=== PATIENT | female | born 1950 | race African-American/Black ===

== ENCOUNTER 2020-01-25 16:45 | Emergency (ER) | payer MEDICARE, MEDICAID ==
[~2020-01-25] VITALS: Ht 165.1 cm; Wt 82.0 kg
[~2020-01-25 16:45] MED LIST: AMLO10TA4 PO; BIMA2.5D4 EACHEYE; HYDR-4001 PO; MOM PO; NITR0.4T SL; POLY17PO28 PO; SENN8.6T21 PO; TOPUD PO
[2020-01-25 19:06] LABS: BASOPHILS % 0.8 % (0.0-2.0); EOSINOPHILS % 5.2 % (0.0-5.0); HEMATOCRIT. 42.9 % (36.0-48.0); HEMOGLOBIN. 14.1 g/dL (12.0-16.0); LYMPHOCYTES % 22.8 % (20.0-50.0); MEAN CORPUSCULAR HEMOGLOBIN 26.2 pg (28.0-32.0); MEAN CORPUSCULAR VOLUME 79.9 fL (81.0-99.0); MEAN PLATELET VOLUME 9.6 fl (7.4-10.4); MONOCYTES % 6.8 % (2.0-8.0); NEUTROPHILS % 64.4 % (40.0-76.0); PLATELET 406 x1000/uL (130-400); RED BLOOD CELL COUNT 5.38 mill/uL (4.2-5.4); RED CELL DISTRIBUTION WIDTH 15.5 % (11.6-14.6)
[2020-01-25 19:08] LABS: CHLORIDE 100 mEq/L (98-107)
[2020-01-25 20:35] LABS: CLARITY URINE CLEAR (CLEAR); COLOR URINE YELLOW (YELLOW); KETONES URINE NEGATIVE (NEGATIVE); LEUKOCYTE ESTERASE URINE NEGATIVE (NEGATIVE); NITRITE URINE NEGATIVE (NEGATIVE); OCCULT BLOOD URINE NEGATIVE (NEGATIVE); PROTEIN URINE NEGATIVE (NEGATIVE); SPECIFIC GRAVITY URINE 1.026 (1.005-1.030); UROBILINOGEN URINE 0.2 E.U./dL (0.2-1.0)
[2020-01-25] MEDS ORDERED: FLUCONAZOLE 100MG TABLET PO ONE (21:00)
[2020-01-25] MEDS ORDERED: FLUCONAZOLE 150MG TABLET PO ONE (21:00)
[2020-01-25 22:00] VITALS: BP 152/93
== END 2020-01-26 00:01 | disposition home or self-care (01) ==
LOC: ER 16:45
DX: B37.89 Other sites of candidiasis (principal); E11.65 Type 2 diabetes mellitus with hyperglycemia; I10 Essential (primary) hypertension; Z86.73 Personal history of transient ischemic attack (TIA), and cerebral infarction without residual deficits; Z90.710 Acquired absence of both cervix and uterus; Z79.899 Other long term (current) drug therapy
CPT/HCPCS: 36415; 80048; 81003; 85025; 99285

== ENCOUNTER 2020-06-14 15:05 | Inpatient (IN) | payer MEDICARE, MEDICAID ==
[~2020-06-14] VITALS: Ht 170.2 cm; Wt 122.0 kg
[2020-06-14 16:59] LABS: BASOPHILS % 0.5 % (0.0-2.0); EOSINOPHILS % 1.1 % (0.0-5.0); HEMATOCRIT. 35.2 % (36.0-48.0); HEMOGLOBIN. 11.3 g/dL (12.0-16.0); LYMPHOCYTES % 11.7 % (20.0-50.0); MEAN CORPUSCULAR HEMOGLOBIN 24.8 pg (28.0-32.0); MEAN CORPUSCULAR VOLUME 77.6 fL (81.0-99.0); MEAN PLATELET VOLUME 8.8 fl (7.4-10.4); MONOCYTES % 5.6 % (2.0-8.0); NEUTROPHILS % 81.1 % (40.0-76.0); PLATELET 366 x1000/uL (130-400); RED BLOOD CELL COUNT 4.54 mill/uL (4.2-5.4); RED CELL DISTRIBUTION WIDTH 17.2 % (11.6-14.6)
[2020-06-14 17:05] LABS: CHLORIDE 105 mEq/L (98-107)
[2020-06-14 17:08] LABS: PROTHROMBIN TIME 10.5 sec (9.6-11.0)
[2020-06-14] MEDS ORDERED: ONDANSETRON HCL 4MG/2ML INJ IV ONE (18:15)
[2020-06-14] MEDS ORDERED: FAMOTIDINE 20MG/2ML VIAL IV ONE (18:15)
[2020-06-14] MEDS ORDERED: MORPHINE SULFATE 4 MG/ML CPJ (NOT FOR IM USE) IV ONE (18:15)
[2020-06-14] MEDS ORDERED: CEFTRIAXONE 1 G PREMIX 50 ML IV NR (20:45)
[2020-06-14] MEDS ORDERED: DEXTROSE 50% WATER 50ML SYRINGE IV PRN (21:30)
[2020-06-14] MEDS ORDERED: ONDANSETRON HCL 4MG/2ML INJ IV PRN (21:30)
[2020-06-14] MEDS ORDERED: ZOLPIDEM TARTRATE 5MG TABLET PO PRN (21:30)
[2020-06-14] MEDS ORDERED: TRAMADOL 50MG TABLET PO PRN (21:30)
[2020-06-14] MEDS ORDERED: DOCUSATE SODIUM 100MG CAPSULE PO PRN (21:30)
[2020-06-14] MEDS ORDERED: GUAIFENESIN 200MG/10ML SUGAR FREE UDC PO PRN (21:30)
[2020-06-14] MEDS ORDERED: KETOROLAC 15MG/ML VIAL IV PRN (21:30)
[2020-06-14] MEDS ORDERED: MAGNESIUM/ALUMINUM HYDROXIDE/SIMETHICONE 30ML UDC PO PRN (21:30)
[2020-06-14] MEDS ORDERED: CLONIDINE 0.1MG TABLET PO PRN (21:30)
[2020-06-14] MEDS ORDERED: NA PHOS,M-B/NA PHOS,DI-BA ENEMA 118ML PR PRN (21:30)
[2020-06-14] MEDS ORDERED: IPRATROPIUM/ALBUTEROL 0.5-3(2.5)MG/3ML NEB NEB PRN (21:30)
[2020-06-14] MEDS: DEXT 5%/LACTATED RINGERS 1,000 ML IV SCH (23:15)
[2020-06-14] MEDS: ACETAMINOPHEN 325MG TABLET PO PRN (23:35)
[2020-06-14 23:45] VITALS: BP 130/76
[2020-06-15] VITALS: BP 130/76
[2020-06-15] MEDS ORDERED: BACL-141 MT (03:44)
[2020-06-15] MEDS ORDERED: CLON-457 MT (03:44)
[2020-06-15] MEDS ORDERED: PREG50CA MT (03:44)
[2020-06-15] MEDS ORDERED: ATOR20TA65 PO (03:44)
[2020-06-15] MEDS ORDERED: DULO60CA64 PO (03:44)
[2020-06-15] MEDS ORDERED: LACT10SO30 MT (03:44)
[2020-06-15] MEDS ORDERED: ASPI-1158 MT (03:44)
[2020-06-15] MEDS ORDERED: GLYB5TAB7 MT (03:44)
[2020-06-15] MEDS ORDERED: FAMO20TA8 MT (03:44)
[2020-06-15] MEDS ORDERED: DOCU-138 MT (03:44)
[2020-06-15] MEDS ORDERED: BISA10SU62 RC (03:44)
[2020-06-15] MEDS ORDERED: IPRA3AMP31 IH (03:44)
[2020-06-15] MEDS ORDERED: NA P230E RC (03:44)
[2020-06-15 04:00] VITALS: BP 145/79
[2020-06-15] MEDS ORDERED: PIPERACILLIN/TAZ 3.375G PREMIX 50 ML IV SCH (06:00)
[2020-06-15] MEDS: BLOOD SUGAR DIAGNOSTIC STRIP TEST SCH ×4 (06:55→20:54)
[2020-06-15] MEDS: DEXT 5%/LACTATED RINGERS 1,000 ML IV SCH ×2 (06:55→06:56)
[2020-06-15] MEDS: PIPERACILLIN/TAZOBACTAM 3.375 G in DEXT 5% WATER 100 ML IV SCH ×3 (06:55→21:28)
[2020-06-15] MEDS: INSULIN LISPRO 100 UNITS/ML SUBCUT SCH ×4 (07:10→21:39)
[2020-06-15 08:00] VITALS: BP 132/76
[2020-06-15] MEDS: AMLODIPINE 10MG TABLET PO SCH (08:55)
[2020-06-15] MEDS: PANTOPRAZOLE SODIUM 40 MG/VIAL IV SCH (08:55)
[2020-06-15] MEDS ORDERED: ENOXAPARIN 40MG/0.4ML SYR SUBCUT SCH (09:00)
[2020-06-15 12:00] VITALS: BP 132/79
[2020-06-15] MEDS: ACETAMINOPHEN 325MG TABLET PO PRN ×2 (12:50→21:28)
[2020-06-15 16:00] VITALS: BP 137/73
[2020-06-15 20:00] VITALS: BP 136/76
[2020-06-15] MEDS: ENOXAPARIN 30MG/0.3ML SYR SUBCUT SCH (21:28)
[2020-06-15 22:57] LABS: FOLIC ACID (FOLATE) SERUM 12.1 ng/mL (>5.38)
[2020-06-16] VITALS: BP 136/75
[2020-06-16] MEDS: MORPHINE SULFATE 2 MG/ML CPJ (NOT FOR IM USE) IV PRN ×2 (00:46→12:01)
[2020-06-16] MEDS: DEXT 5%/LACTATED RINGERS 1,000 ML IV SCH ×2 (02:47→14:50)
[2020-06-16 04:45] VITALS: BP 133/70
[2020-06-16] MEDS: ACETAMINOPHEN 325MG TABLET PO PRN ×2 (05:19→21:23)
[2020-06-16] MEDS: PIPERACILLIN/TAZOBACTAM 3.375 G in DEXT 5% WATER 100 ML IV SCH ×3 (05:19→21:24)
[2020-06-16] MEDS: BLOOD SUGAR DIAGNOSTIC STRIP TEST SCH ×4 (06:32→21:22)
[2020-06-16] MEDS: INSULIN LISPRO 100 UNITS/ML SUBCUT SCH ×4 (06:38→21:25)
[2020-06-16 08:00] VITALS: BP 129/72
[2020-06-16] MEDS: AMLODIPINE 10MG TABLET PO SCH (09:38)
[2020-06-16] MEDS: ENOXAPARIN 30MG/0.3ML SYR SUBCUT SCH (09:38)
[2020-06-16] MEDS: PANTOPRAZOLE SODIUM 40 MG/VIAL IV SCH (09:38)
[2020-06-16 12:00] VITALS: BP 128/63
[2020-06-16 12:32] LABS: BASOPHILS % 0.9 % (0.0-2.0); EOSINOPHILS % 1.9 % (0.0-5.0); HEMATOCRIT. 33.8 % (36.0-48.0); HEMOGLOBIN. 10.8 g/dL (12.0-16.0); LYMPHOCYTES % 9.5 % (20.0-50.0); MEAN CORPUSCULAR HEMOGLOBIN 24.9 pg (28.0-32.0); MEAN CORPUSCULAR VOLUME 78.2 fL (81.0-99.0); MEAN PLATELET VOLUME 9.3 fl (7.4-10.4); MONOCYTES % 8.6 % (2.0-8.0); NEUTROPHILS % 79.1 % (40.0-76.0); PLATELET 348 x1000/uL (130-400); RED BLOOD CELL COUNT 4.33 mill/uL (4.2-5.4); RED CELL DISTRIBUTION WIDTH 17.7 % (11.6-14.6)
[2020-06-16 12:45] LABS: CHLORIDE 104 mEq/L (98-107)
[2020-06-16 16:00] VITALS: BP 138/63
[2020-06-16 20:00] VITALS: BP 150/74
[2020-06-17] VITALS (18 sets, daily range): BP systolic 131–185; BP diastolic 70–104
[2020-06-17] MEDS: PIPERACILLIN/TAZOBACTAM 3.375 G in DEXT 5% WATER 100 ML IV SCH ×3 (05:54→21:04)
[2020-06-17] MEDS: BLOOD SUGAR DIAGNOSTIC STRIP TEST SCH ×4 (06:29→20:53)
[2020-06-17] MEDS: INSULIN LISPRO 100 UNITS/ML SUBCUT SCH ×4 (06:29→21:03)
[2020-06-17] MEDS: PANTOPRAZOLE SODIUM 40 MG/VIAL IV SCH (08:57)
[2020-06-17] MEDS: DEXT 5%/LACTATED RINGERS 1,000 ML IV SCH ×2 (08:58→22:18)
[2020-06-17] MEDS: AMLODIPINE 10MG TABLET PO SCH (08:59)
[2020-06-17] MEDS ORDERED: LIDOCAINE HCL 1% 20ML VIAL (Pyxis) INJ ONE (10:42)
[2020-06-17] MEDS ORDERED: SODIUM BICARBONATE 4% (2.4MEQ) 5ML VIAL IV ONE (10:42)
[2020-06-17] MEDS ORDERED: IOHEXOL-300 50 ML BOTTLE IV ONE (10:46)
[2020-06-17] MEDS ORDERED: FENTANYL CITRATE/PF 50MCG/ML 2ML VIAL ONE (11:32)
[2020-06-17] MEDS ORDERED: FENTANYL CITRATE/PF 50MCG/ML 2ML VIAL IV ONE (11:45)
[2020-06-17] MEDS ORDERED: ONDANSETRON HCL 4MG/2ML INJ IV ONE (11:45)
[2020-06-17] MEDS ORDERED: ONDANSETRON HCL 4MG/2ML INJ ONE (11:47)
[2020-06-18] VITALS: BP 135/76
[2020-06-18 04:00] VITALS: BP 129/72
[2020-06-18] MEDS: DEXT 5%/LACTATED RINGERS 1,000 ML IV SCH ×2 (05:51→15:47)
[2020-06-18] MEDS: PIPERACILLIN/TAZOBACTAM 3.375 G in DEXT 5% WATER 100 ML IV SCH ×3 (05:51→21:41)
[2020-06-18] MEDS: BLOOD SUGAR DIAGNOSTIC STRIP TEST SCH ×4 (05:59→21:31)
[2020-06-18] MEDS: INSULIN LISPRO 100 UNITS/ML SUBCUT SCH ×4 (06:16→21:40)
[2020-06-18 08:00] VITALS: BP 131/70
[2020-06-18] MEDS: AMLODIPINE 10MG TABLET PO SCH (09:29)
[2020-06-18] MEDS: PANTOPRAZOLE SODIUM 40 MG/VIAL IV SCH (09:29)
[2020-06-18 09:33] LABS: BASOPHILS % 0.5 % (0.0-2.0); EOSINOPHILS % 4.6 % (0.0-5.0); HEMATOCRIT. 31.5 % (36.0-48.0); MEAN CORPUSCULAR HEMOGLOBIN 24.7 pg (28.0-32.0); MEAN CORPUSCULAR VOLUME 77.5 fL (81.0-99.0); MEAN PLATELET VOLUME 8.9 fl (7.4-10.4); MONOCYTES % 5.6 % (2.0-8.0); NEUTROPHILS % 76.3 % (40.0-76.0); PLATELET 339 x1000/uL (130-400); RED BLOOD CELL COUNT 4.06 mill/uL (4.2-5.4)
[2020-06-18 09:45] LABS: CHLORIDE 102 mEq/L (98-107)
[2020-06-18 09:50] LABS: PHOSPHORUS 2.4 mg/dL (2.5-4.9)
[2020-06-18 12:00] VITALS: BP 122/60
[2020-06-18] MEDS ORDERED: POTASSIUM CHLORIDE 20MEQ TABLET SR PO SCH (12:30)
[2020-06-18 16:00] VITALS: BP 130/65
[2020-06-18] MEDS ORDERED: POTASSIUM PHOS,M-BASIC-D-BASIC 15 MMOL in DEXT 5% WATER 245 ML IV ONE (16:45)
[2020-06-18 20:00] VITALS: BP 117/58
[2020-06-19] VITALS: BP 135/69
[2020-06-19] MEDS: DEXT 5%/LACTATED RINGERS 1,000 ML IV SCH ×3 (01:46→20:50)
[2020-06-19 04:00] VITALS: BP 112/67
[2020-06-19] MEDS: PIPERACILLIN/TAZOBACTAM 3.375 G in DEXT 5% WATER 100 ML IV SCH ×3 (05:40→21:03)
[2020-06-19] MEDS: BLOOD SUGAR DIAGNOSTIC STRIP TEST SCH ×4 (06:16→20:49)
[2020-06-19] MEDS: INSULIN LISPRO 100 UNITS/ML SUBCUT SCH ×4 (06:17→20:49)
[2020-06-19 06:35] LABS: BASOPHILS % 0.5 % (0.0-2.0); EOSINOPHILS % 6.1 % (0.0-5.0); HEMATOCRIT. 31.5 % (36.0-48.0); HEMOGLOBIN. 10.2 g/dL (12.0-16.0); LYMPHOCYTES % 14.4 % (20.0-50.0); MEAN CORPUSCULAR HEMOGLOBIN 24.9 pg (28.0-32.0); MEAN CORPUSCULAR VOLUME 76.5 fL (81.0-99.0); MEAN PLATELET VOLUME 8.7 fl (7.4-10.4); MONOCYTES % 6.6 % (2.0-8.0); NEUTROPHILS % 72.4 % (40.0-76.0); PLATELET 378 x1000/uL (130-400); RED BLOOD CELL COUNT 4.12 mill/uL (4.2-5.4); RED CELL DISTRIBUTION WIDTH 16.9 % (11.6-14.6)
[2020-06-19 06:39] LABS: CHLORIDE 100 mEq/L (98-107)
[2020-06-19 06:50] LABS: PHOSPHORUS 3.4 mg/dL (2.5-4.9)
[2020-06-19 08:00] VITALS: BP 137/87
[2020-06-19] MEDS: AMLODIPINE 10MG TABLET PO SCH (08:31)
[2020-06-19] MEDS: ENOXAPARIN 30MG/0.3ML SYR SUBCUT SCH ×2 (08:32→20:49)
[2020-06-19] MEDS: FAMOTIDINE 20MG/2ML VIAL IV SCH ×2 (08:32→20:48)
[2020-06-19] MEDS: ACETAMINOPHEN 325MG TABLET PO PRN (09:42)
[2020-06-19] MEDS ORDERED: POTASSIUM CHLORIDE 20MEQ TABLET SR PO NR (10:45)
[2020-06-19 12:00] VITALS: BP 119/80
[2020-06-19] MEDS ORDERED: POTASSIUM CHLORIDE INJ 40 MEQ in DEXT 5% WATER 250 ML IV NR (13:00)
[2020-06-19] MEDS: THROAT LOZENGES-BENZOCAINE/MENTH/CETYLPYRD CL LOZENGES MM PRN ×2 (15:08→20:50)
[2020-06-19 15:59] VITALS: BP 149/85
[2020-06-19 21:25] VITALS: BP 140/80
[2020-06-20] VITALS: BP 140/78
[2020-06-20 04:00] VITALS: BP 139/74
[2020-06-20] MEDS: PIPERACILLIN/TAZOBACTAM 3.375 G in DEXT 5% WATER 100 ML IV SCH ×2 (05:37→14:37)
[2020-06-20] MEDS: INSULIN LISPRO 100 UNITS/ML SUBCUT SCH ×3 (06:24→18:16)
[2020-06-20] MEDS: BLOOD SUGAR DIAGNOSTIC STRIP TEST SCH ×3 (06:24→16:45)
[2020-06-20] MEDS: DEXT 5%/LACTATED RINGERS 1,000 ML IV SCH (06:25)
[2020-06-20 08:00] VITALS: BP 142/76
[2020-06-20 08:41] LABS: BASOPHILS % 0.6 % (0.0-2.0); EOSINOPHILS % 5.7 % (0.0-5.0); LYMPHOCYTES % 14.4 % (20.0-50.0); MEAN CORPUSCULAR HEMOGLOBIN 24.6 pg (28.0-32.0); MEAN CORPUSCULAR VOLUME 76.8 fL (81.0-99.0); MEAN PLATELET VOLUME 8.4 fl (7.4-10.4); MONOCYTES % 6.6 % (2.0-8.0); NEUTROPHILS % 72.7 % (40.0-76.0); PLATELET 447 x1000/uL (130-400); RED BLOOD CELL COUNT 4.84 mill/uL (4.2-5.4)
[2020-06-20 08:58] LABS: HEMATOCRIT. 37.2 % (36.0-48.0); HEMOGLOBIN. 11.9 g/dL (12.0-16.0)
[2020-06-20 09:06] LABS: CHLORIDE 101 mEq/L (98-107)
[2020-06-20 09:14] LABS: PHOSPHORUS 3.2 mg/dL (2.5-4.9)
[2020-06-20] MEDS: FAMOTIDINE 20MG/2ML VIAL IV SCH (09:27)
[2020-06-20] MEDS: ENOXAPARIN 30MG/0.3ML SYR SUBCUT SCH (09:27)
[2020-06-20] MEDS: AMLODIPINE 10MG TABLET PO SCH (09:28)
[2020-06-20 12:00] VITALS: BP 126/74
[2020-06-20 16:00] VITALS: BP 127/82
== END 2020-06-20 18:40 | DRG 445 ==
LOC: ER 15:05 → 5WST 21:19 → ENRESERV 23:04
PROVIDERS: ADMIT Internal Medicine; ATTEND Internal Medicine
PROC: 0F9430Z Drainage of Gallbladder with Drainage Device, Percutaneous Approach (ICD-10-PCS; principal; 2020-06-14)
DX: K81.0 Acute cholecystitis (principal); Z68.41 Body mass index [BMI] 40.0-44.9, adult; E44.0 Moderate protein-calorie malnutrition; M19.90 Unspecified osteoarthritis, unspecified site; N20.0 Calculus of kidney; K76.0 Fatty (change of) liver, not elsewhere classified; I10 Essential (primary) hypertension; F17.200 Nicotine dependence, unspecified, uncomplicated; D64.9 Anemia, unspecified; E11.9 Type 2 diabetes mellitus without complications; Z20.828 Contact with and (suspected) exposure to other viral communicable diseases; E66.9 Obesity, unspecified; Z86.73 Personal history of transient ischemic attack (TIA), and cerebral infarction without residual deficits; Z79.4 Long term (current) use of insulin; Z79.899 Other long term (current) drug therapy; Z82.49 Family history of ischemic heart disease and other diseases of the circulatory system; Z90.710 Acquired absence of both cervix and uterus
CPT/HCPCS: 36415; 47490; 71045; 74176; 76705; 78227; 80048; 80053; 80061; 80076; 82607; 82746; 82962; 83036; 83540; 83550; 83735; 83880; 84100; 84484; 85025; 87426; 93005; 93970; 97162; 97530; 99285; A9537; C1729; C9113; J0696; J1650; J1815; J2270; J2405; J2543; J3010; J3480; J3490; J7060; Q9967

== ENCOUNTER → 2020-07-22 | Day surgery (SDC) | payer MEDICARE, MEDICAID ==
[~2020-07-22] MED LIST changes: +ASPI-1158 MT; +ATOR20TA65 PO; +BACL-141 MT; +BISA10SU62 RC; +CLON-457 MT; +DOCU-138 MT; +DULO60CA64 PO; +FAMO20TA8 MT; +GLYB5TAB7 MT; +IOHEXOL-300 50 ML BOTTLE IV ONE; +IPRA3AMP31 IH; +LACT10SO30 MT; +LIDOCAINE HCL 1% 20ML VIAL (Pyxis) INJ ONE; +NA P230E RC; +PREG50CA MT; +SODIUM BICARBONATE 4% (2.4MEQ) 5ML VIAL IV ONE
== END | disposition home or self-care (01) ==
LOC: ANGIO 10:23 → EDSTATUS 10:27
PROVIDERS: ATTEND Surgery
DX: K80.20 Calculus of gallbladder without cholecystitis without obstruction (principal)
CPT/HCPCS: 47490; Q9967; 47531; J3490

== ENCOUNTER 2021-04-17 00:43 | Inpatient (IN) | payer MEDICARE, MEDICAID ==
[~2021-04-17] VITALS: Ht 170.2 cm; Wt 115.7 kg
[~2021-04-17 00:43] MED LIST changes: -ASPI-1158 MT; +ASPI-1406 MT; -IOHEXOL-300 50 ML BOTTLE IV ONE; -LIDOCAINE HCL 1% 20ML VIAL (Pyxis) INJ ONE; -SODIUM BICARBONATE 4% (2.4MEQ) 5ML VIAL IV ONE
[2021-04-17 01:43] LABS: BASOPHILS % 0.8 % (0.0-2.0); EOSINOPHILS % 1.3 % (0.0-5.0); HEMATOCRIT. 37.7 % (36.0-48.0); HEMOGLOBIN. 12.3 g/dL (12.0-16.0); LYMPHOCYTES % 17.3 % (20.0-50.0); MEAN CORPUSCULAR HEMOGLOBIN 25.1 pg (28.0-32.0); MEAN CORPUSCULAR VOLUME 76.7 fL (81.0-99.0); MEAN PLATELET VOLUME 9.4 fl (7.4-10.4); MONOCYTES % 5.9 % (2.0-8.0); NEUTROPHILS % 74.7 % (40.0-76.0); PLATELET 360 x1000/uL (130-400); RED BLOOD CELL COUNT 4.92 mill/uL (4.2-5.4); RED CELL DISTRIBUTION WIDTH 16.5 % (11.6-14.6)
[2021-04-17 01:46] LABS: CHLORIDE 103 mEq/L (98-107)
[2021-04-17 01:53] LABS: PROTHROMBIN TIME 11.1 sec (9.6-11.0)
[2021-04-17] MEDS ORDERED: PIPERACILLIN/TAZ 3.375G PREMIX 50 ML IV ONE (02:15)
[2021-04-17 02:34] LABS: CLARITY URINE CLOUDY (CLEAR); COLOR URINE YELLOW (YELLOW); KETONES URINE NEGATIVE (NEGATIVE); LEUKOCYTE ESTERASE URINE 2+ (NEGATIVE); NITRITE URINE POSITIVE (NEGATIVE); OCCULT BLOOD URINE NEGATIVE (NEGATIVE); PROTEIN URINE TRACE (NEGATIVE); SPECIFIC GRAVITY URINE 1.017 (1.005-1.030); UROBILINOGEN URINE 0.2 E.U./dL (0.2-1.0)
[2021-04-17] MEDS ORDERED: ACETAMINOPHEN 650MG SUPP PR NR (03:00)
[2021-04-17] MEDS ORDERED: ACETAMINOPHEN 325MG SUPP PR NR (03:00)
[2021-04-17] MEDS ORDERED: ONDANSETRON HCL 4MG/2ML INJ IV PRN (06:45)
[2021-04-17] MEDS ORDERED: NITROGLYCERIN 0.4MG TABLET SL SL PRN (06:45)
[2021-04-17] MEDS ORDERED: MAGNESIUM/ALUMINUM HYDROXIDE/SIMETHICONE 30ML UDC PO PRN (06:45)
[2021-04-17] MEDS ORDERED: GUAIFENESIN 200MG/10ML SUGAR FREE UDC PO PRN (06:45)
[2021-04-17] MEDS ORDERED: DEXTROSE 50% WATER 50ML SYRINGE IV PRN (06:45)
[2021-04-17] MEDS ORDERED: IPRATROPIUM/ALBUTEROL 0.5-3(2.5)MG/3ML NEB NEB PRN (06:45)
[2021-04-17] MEDS ORDERED: NA PHOS,M-B/NA PHOS,DI-BA ENEMA 118ML PR PRN (06:45)
[2021-04-17] MEDS ORDERED: CLONIDINE 0.1MG TABLET PO PRN (06:45)
[2021-04-17] MEDS ORDERED: TRAMADOL 50MG TABLET PO PRN (06:45)
[2021-04-17] MEDS ORDERED: ACETAMINOPHEN 325MG TABLET PO PRN ×2 (06:45)
[2021-04-17] MEDS ORDERED: VANCOMYCIN 1 G PREMIX 200 ML IV SCH ×3 (08:00→16:00)
[2021-04-17] MEDS: INSULIN LISPRO 100 UNITS/ML SUBCUT SCH ×4 (08:05→21:05)
[2021-04-17] MEDS ORDERED: DOCUSATE SODIUM 100MG CAPSULE PO PRN (09:00)
[2021-04-17] MEDS: ZINC SULFATE 220 MG ( 50 ) CAPSULE PO SCH (09:02)
[2021-04-17] MEDS: ASPIRIN 325MG EC TABLET PO SCH (09:02)
[2021-04-17] MEDS: FAMOTIDINE 20MG TABLET PO SCH ×2 (09:02→21:04)
[2021-04-17] MEDS: METOPROLOL TARTRATE 25MG TABLET PO SCH ×2 (09:02→21:03)
[2021-04-17] MEDS: ASCORBIC ACID 500 MG TABLET PO SCH ×2 (09:02→21:03)
[2021-04-17] MEDS: PIPERACILLIN/TAZOBACTAM 3.375 G in DEXTROSE 5% WATER 50 ML IV SCH ×3 (10:02→21:11)
[2021-04-17] MEDS: ENOXAPARIN 30MG/0.3ML SYR SUBCUT SCH ×2 (10:03→21:03)
[2021-04-17] MEDS: INSULIN GLARGINE UD 100 UNITS/ML SYR SUBCUT SCH (10:12)
[2021-04-17] MEDS: BLOOD SUGAR DIAGNOSTIC STRIP TEST SCH ×3 (11:30→20:20)
[2021-04-17] MEDS ORDERED: NALOXONE HCL 0.4MG/ML VIAL IV PRN (14:45)
[2021-04-17 17:41] VITALS: BP 116/70
[2021-04-17 17:45] LABS: T4 FREE 1.06 ng/dL (0.76-1.46)
[2021-04-17] MEDS: KETOROLAC 15MG/ML VIAL IV PRN (18:58)
[2021-04-17 19:16] VITALS: BP 116/70
[2021-04-17 19:27] VITALS: BP 116/70
[2021-04-17 19:58] LABS: CREATINE KINASE 27 IU/L (26-192)
[2021-04-17 19:59] LABS: CREATINE KINASE MB FRACTION < 1.0 ng/mL (0.5-3.6)
[2021-04-17 20:30] VITALS: BP 126/61
[2021-04-17] MEDS ORDERED: VANCOMYCIN 750 MG PREMIX 150 ML IV SCH (21:00)
[2021-04-17] MEDS ORDERED: ZOLPIDEM TARTRATE 5MG TABLET PO PRN (21:00)
[2021-04-17] MEDS ORDERED: METO25TA6 MT (22:06)
[2021-04-17] MEDS ORDERED: PERM60CR4 TP (22:06)
[2021-04-17] MEDS ORDERED: LANTUSUD SUBCUT (22:06)
[2021-04-17] MEDS ORDERED: HYDR-4001 PO (22:06)
[2021-04-17] MEDS ORDERED: INSLIS SUBCUT (22:06)
[2021-04-17] MEDS ORDERED: MELA3CAP2 PO (22:06)
[2021-04-17] MEDS ORDERED: LIDO30CR46 TP (22:06)
[2021-04-17] MEDS ORDERED: [UNRECOGNIZED DRUG - CODE] TP (22:06)
[2021-04-17] MEDS ORDERED: IVER3TAB2 MT (22:06)
[2021-04-17] MEDS ORDERED: LACT10SO3 MT (22:06)
[2021-04-17] MEDS ORDERED: METF-414 MT (22:06)
[2021-04-18 00:30] VITALS: BP 120/66
[2021-04-18 00:58] LABS: CREATINE KINASE 33 IU/L (26-192)
[2021-04-18 00:59] LABS: CREATINE KINASE MB FRACTION < 1.0 ng/mL (0.5-3.6)
[2021-04-18] MEDS: PIPERACILLIN/TAZOBACTAM 3.375 G in DEXTROSE 5% WATER 50 ML IV SCH ×4 (01:41→20:16)
[2021-04-18 04:30] VITALS: BP 130/68
[2021-04-18] MEDS: VANCOMYCIN 1 G PREMIX 200 ML IV SCH (05:15)
[2021-04-18] MEDS ORDERED: VANCOMYCIN 1 G PREMIX 200 ML IV SCH (06:00)
[2021-04-18] MEDS: BLOOD SUGAR DIAGNOSTIC STRIP TEST SCH ×4 (06:37→20:56)
[2021-04-18 08:20] VITALS: BP 129/72
[2021-04-18] MEDS: ASPIRIN 325MG EC TABLET PO SCH (09:22)
[2021-04-18] MEDS: FAMOTIDINE 20MG TABLET PO SCH ×2 (09:22→20:56)
[2021-04-18] MEDS: ZINC SULFATE 220 MG ( 50 ) CAPSULE PO SCH (09:22)
[2021-04-18] MEDS: ENOXAPARIN 30MG/0.3ML SYR SUBCUT SCH ×2 (09:22→20:16)
[2021-04-18] MEDS: METOPROLOL TARTRATE 25MG TABLET PO SCH ×2 (09:23→20:56)
[2021-04-18] MEDS: ASCORBIC ACID 500 MG TABLET PO SCH ×2 (09:23→20:56)
[2021-04-18] MEDS: INSULIN LISPRO 100 UNITS/ML SUBCUT SCH ×4 (09:42→20:57)
[2021-04-18] MEDS: INSULIN GLARGINE UD 100 UNITS/ML SYR SUBCUT SCH (11:42)
[2021-04-18 12:08] VITALS: BP 130/68
[2021-04-18 14:04] LABS: FOLIC ACID (FOLATE) SERUM 17.9 ng/mL (>5.38)
[2021-04-18 16:22] VITALS: BP 129/71
[2021-04-18 17:21] LABS: BASOPHILS % 0.5 % (0.0-2.0); EOSINOPHILS % 3.3 % (0.0-5.0); HEMATOCRIT. 33.4 % (36.0-48.0); LYMPHOCYTES % 17.8 % (20.0-50.0); MEAN CORPUSCULAR HEMOGLOBIN 25.2 pg (28.0-32.0); MEAN CORPUSCULAR VOLUME 77.1 fL (81.0-99.0); MEAN PLATELET VOLUME 9.4 fl (7.4-10.4); MONOCYTES % 6.8 % (2.0-8.0); NEUTROPHILS % 71.6 % (40.0-76.0); PLATELET 296 x1000/uL (130-400); RED BLOOD CELL COUNT 4.34 mill/uL (4.2-5.4); RED CELL DISTRIBUTION WIDTH 16.3 % (11.6-14.6)
[2021-04-18 17:50] LABS: CHLORIDE 103 mEq/L (98-107)
[2021-04-18 17:56] LABS: PHOSPHORUS 2.4 mg/dL (2.5-4.9)
[2021-04-18] MEDS: KETOROLAC 15MG/ML VIAL IV PRN (18:20)
[2021-04-18 20:00] VITALS: BP 148/79
[2021-04-19] VITALS: BP 134/73
[2021-04-19] MEDS: VANCOMYCIN 1 G PREMIX 200 ML IV SCH (00:13)
[2021-04-19] MEDS: PIPERACILLIN/TAZOBACTAM 3.375 G in DEXTROSE 5% WATER 50 ML IV SCH ×4 (02:12→20:25)
[2021-04-19 04:00] VITALS: BP 106/60
[2021-04-19 06:01] LABS: CHLORIDE 105 mEq/L (98-107)
[2021-04-19] MEDS: BLOOD SUGAR DIAGNOSTIC STRIP TEST SCH ×4 (06:15→21:26)
[2021-04-19 08:00] VITALS: BP 147/43
[2021-04-19] MEDS: ASPIRIN 325MG EC TABLET PO SCH (08:17)
[2021-04-19] MEDS: FAMOTIDINE 20MG TABLET PO SCH ×2 (08:17→21:26)
[2021-04-19] MEDS: ASCORBIC ACID 500 MG TABLET PO SCH ×2 (08:17→21:26)
[2021-04-19] MEDS: ENOXAPARIN 30MG/0.3ML SYR SUBCUT SCH ×2 (08:17→20:25)
[2021-04-19] MEDS: ZINC SULFATE 220 MG ( 50 ) CAPSULE PO SCH (08:17)
[2021-04-19] MEDS: INSULIN LISPRO 100 UNITS/ML SUBCUT SCH ×4 (08:21→21:27)
[2021-04-19] MEDS: METOPROLOL TARTRATE 25MG TABLET PO SCH ×2 (08:46→21:26)
[2021-04-19] MEDS: INSULIN GLARGINE UD 100 UNITS/ML SYR SUBCUT SCH (10:45)
[2021-04-19 12:22] VITALS: BP 115/79
[2021-04-19] MEDS: VANCOMYCIN 750 MG PREMIX 150 ML IV SCH (13:24)
[2021-04-19 16:00] VITALS: BP 158/39
[2021-04-19 20:00] VITALS: BP 140/72
[2021-04-20] VITALS: BP 133/75
[2021-04-20] MEDS: VANCOMYCIN 750 MG PREMIX 150 ML IV SCH ×2 (00:24→12:29)
[2021-04-20] MEDS: PIPERACILLIN/TAZOBACTAM 3.375 G in DEXTROSE 5% WATER 50 ML IV SCH ×2 (02:52→08:54)
[2021-04-20 04:00] VITALS: BP 132/70
[2021-04-20] MEDS: BLOOD SUGAR DIAGNOSTIC STRIP TEST SCH ×4 (06:51→21:05)
[2021-04-20 08:00] VITALS: BP 136/68
[2021-04-20] MEDS: FAMOTIDINE 20MG TABLET PO SCH ×2 (08:54→21:04)
[2021-04-20] MEDS: ASPIRIN 325MG EC TABLET PO SCH (08:54)
[2021-04-20] MEDS: ZINC SULFATE 220 MG ( 50 ) CAPSULE PO SCH (08:54)
[2021-04-20] MEDS: ASCORBIC ACID 500 MG TABLET PO SCH ×2 (08:54→21:04)
[2021-04-20] MEDS: ENOXAPARIN 30MG/0.3ML SYR SUBCUT SCH ×2 (08:55→21:04)
[2021-04-20] MEDS: METOPROLOL TARTRATE 25MG TABLET PO SCH ×2 (08:57→21:04)
[2021-04-20] MEDS: INSULIN LISPRO 100 UNITS/ML SUBCUT SCH ×4 (08:58→21:09)
[2021-04-20] MEDS: INSULIN GLARGINE UD 100 UNITS/ML SYR SUBCUT SCH (10:53)
[2021-04-20 12:00] VITALS: BP 137/76
[2021-04-20 16:00] VITALS: BP 148/83
[2021-04-20] MEDS: CEFEPIME 1,000 MG in DEXTROSE 5% WATER 50 ML IV SCH (16:31)
[2021-04-20 20:00] VITALS: BP 142/89
[2021-04-20] MEDS: TRIAMCINOLONE ACETONIDE 0.1 % OINT 15GM TOP SCH (21:03)
[2021-04-21] VITALS: BP 118/51
[2021-04-21] MEDS: VANCOMYCIN 750 MG PREMIX 150 ML IV SCH ×2 (00:23→12:36)
[2021-04-21 04:00] VITALS: BP 128/74
[2021-04-21] MEDS: CEFEPIME 1,000 MG in DEXTROSE 5% WATER 50 ML IV SCH ×2 (04:15→15:55)
[2021-04-21] MEDS: TRIAMCINOLONE ACETONIDE 0.1 % OINT 15GM TOP SCH ×3 (05:28→21:32)
[2021-04-21] MEDS: BLOOD SUGAR DIAGNOSTIC STRIP TEST SCH ×4 (07:40→21:27)
[2021-04-21 07:55] LABS: CHLORIDE 106 mEq/L (98-107)
[2021-04-21 08:12] VITALS: BP 133/75
[2021-04-21] MEDS: ASCORBIC ACID 500 MG TABLET PO SCH ×2 (08:33→21:23)
[2021-04-21] MEDS: METOPROLOL TARTRATE 25MG TABLET PO SCH ×2 (08:33→21:23)
[2021-04-21] MEDS: FAMOTIDINE 20MG TABLET PO SCH ×2 (08:33→21:23)
[2021-04-21] MEDS: ZINC SULFATE 220 MG ( 50 ) CAPSULE PO SCH (08:33)
[2021-04-21] MEDS: ASPIRIN 325MG EC TABLET PO SCH (08:33)
[2021-04-21] MEDS: ENOXAPARIN 30MG/0.3ML SYR SUBCUT SCH ×2 (08:34→21:27)
[2021-04-21] MEDS: INSULIN LISPRO 100 UNITS/ML SUBCUT SCH ×4 (08:35→21:26)
[2021-04-21] MEDS: INSULIN GLARGINE UD 100 UNITS/ML SYR SUBCUT SCH (09:52)
[2021-04-21 12:03] VITALS: BP 120/64
[2021-04-21 16:49] VITALS: BP 138/78
[2021-04-21 20:00] VITALS: BP 124/85
[2021-04-22] VITALS: BP 121/48
[2021-04-22 04:00] VITALS: BP 134/72
[2021-04-22] MEDS: CEFEPIME 1,000 MG in DEXTROSE 5% WATER 50 ML IV SCH ×2 (04:48→15:53)
[2021-04-22] MEDS: TRIAMCINOLONE ACETONIDE 0.1 % OINT 15GM TOP SCH ×3 (05:44→21:01)
[2021-04-22 07:20] LABS: CHLORIDE 105 mEq/L (98-107)
[2021-04-22] MEDS: BLOOD SUGAR DIAGNOSTIC STRIP TEST SCH ×4 (07:31→20:36)
[2021-04-22 08:09] VITALS: BP 133/68
[2021-04-22] MEDS: ZINC SULFATE 220 MG ( 50 ) CAPSULE PO SCH (08:52)
[2021-04-22] MEDS: ASCORBIC ACID 500 MG TABLET PO SCH ×2 (08:52→20:35)
[2021-04-22] MEDS: METOPROLOL TARTRATE 25MG TABLET PO SCH ×2 (08:52→20:35)
[2021-04-22] MEDS: FAMOTIDINE 20MG TABLET PO SCH ×2 (08:52→20:36)
[2021-04-22] MEDS: ASPIRIN 325MG EC TABLET PO SCH (08:52)
[2021-04-22] MEDS: ENOXAPARIN 30MG/0.3ML SYR SUBCUT SCH ×2 (08:53→20:34)
[2021-04-22] MEDS: INSULIN LISPRO 100 UNITS/ML SUBCUT SCH ×4 (08:54→21:02)
[2021-04-22] MEDS: INSULIN GLARGINE UD 100 UNITS/ML SYR SUBCUT SCH (11:10)
[2021-04-22 11:54] VITALS: BP 131/66
[2021-04-22 16:13] VITALS: BP 141/68
[2021-04-22 20:00] VITALS: BP 128/63
[2021-04-23] VITALS: BP 130/68
[2021-04-23] MEDS: CEFEPIME 1,000 MG in DEXTROSE 5% WATER 50 ML IV SCH (03:26)
[2021-04-23 04:00] VITALS: BP 115/58
[2021-04-23] MEDS: TRIAMCINOLONE ACETONIDE 0.1 % OINT 15GM TOP SCH ×2 (06:21→13:04)
[2021-04-23] MEDS: BLOOD SUGAR DIAGNOSTIC STRIP TEST SCH ×2 (06:24→12:43)
[2021-04-23 08:00] VITALS: BP 124/73
[2021-04-23] MEDS: INSULIN LISPRO 100 UNITS/ML SUBCUT SCH ×2 (09:04→13:04)
[2021-04-23] MEDS: ZINC SULFATE 220 MG ( 50 ) CAPSULE PO SCH (09:04)
[2021-04-23] MEDS: FAMOTIDINE 20MG TABLET PO SCH (09:05)
[2021-04-23] MEDS: METOPROLOL TARTRATE 25MG TABLET PO SCH (09:05)
[2021-04-23] MEDS: ASPIRIN 325MG EC TABLET PO SCH (09:05)
[2021-04-23] MEDS: ASCORBIC ACID 500 MG TABLET PO SCH (09:05)
[2021-04-23] MEDS: ENOXAPARIN 30MG/0.3ML SYR SUBCUT SCH (09:06)
[2021-04-23] MEDS: INSULIN GLARGINE UD 100 UNITS/ML SYR SUBCUT SCH (10:48)
[2021-04-23 12:00] VITALS: BP 140/78
[2021-04-23 13:29] VITALS: BP 140/78
== END 2021-04-23 17:05 | DRG 871 ==
LOC: ER 00:51 → MICUSO 02:44 → EDBEDREQTM 02:49 → EDBEDREQ 02:49 → 6WST 14:32
PROVIDERS: ADMIT Internal Medicine; ATTEND Internal Medicine
DX: A41.59 Other Gram-negative sepsis (principal); G92 Toxic encephalopathy; Z16.12 Extended spectrum beta lactamase (ESBL) resistance; N39.0 Urinary tract infection, site not specified; E11.65 Type 2 diabetes mellitus with hyperglycemia; I10 Essential (primary) hypertension; M19.90 Unspecified osteoarthritis, unspecified site; B96.1 Klebsiella pneumoniae [K. pneumoniae] as the cause of diseases classified elsewhere; E66.01 Morbid (severe) obesity due to excess calories; E78.00 Pure hypercholesterolemia, unspecified; Z20.822 Contact with and (suspected) exposure to COVID-19; Z78.9 Other specified health status; Z79.4 Long term (current) use of insulin; Z82.49 Family history of ischemic heart disease and other diseases of the circulatory system; Z86.73 Personal history of transient ischemic attack (TIA), and cerebral infarction without residual deficits; Z68.39 Body mass index [BMI] 39.0-39.9, adult
CPT/HCPCS: 36415; 71045; 80048; 80053; 80061; 80202; 81003; 82550; 82553; 82607; 82746; 82962; 83036; 83540; 83550; 83605; 83735; 83880; 84100; 84145; 84439; 84443; 84484; 85025; 87077; 87186; 87426; 93005; 93970; 97162; 99291; C1893; J0692; J1650; J1815; J1885; J2543; J3370; J7040; J7060; U0003; U0005

== ENCOUNTER 2021-10-02 10:59 | Inpatient (IN) | payer MEDICARE, MEDICAID ==
[~2021-10-02] VITALS: Ht 170.2 cm; Wt 113.4 kg
[~2021-10-02 10:59] MED LIST changes: -BIMA2.5D4 EACHEYE; +INSLIS SUBCUT; +IVER3TAB2 MT; +LACT10SO3 MT; -LACT10SO30 MT; +LANTUSUD SUBCUT; +LIDO30CR46 TP; +MELA3CAP2 PO; +METF-414 MT; +METO25TA6 MT; +PERM60CR4 TP; -POLY17PO28 PO; -SENN8.6T21 PO; +[UNRECOGNIZED DRUG - CODE] TP
[2021-10-02] MEDS ORDERED: SODIUM CHLORIDE 0.9% 1000ML BAG (SEPSIS BOLUS) IV ONE (11:15)
[2021-10-02] MEDS ORDERED: IOHEXOL-350 100 ML BOTTLE ONE (11:54)
[2021-10-02 12:11] LABS: BASOPHILS % 0.4 % (0.0-2.0); HEMATOCRIT. 35.1 % (36.0-48.0); HEMOGLOBIN. 10.8 g/dL (12.0-16.0); LYMPHOCYTES % 8.7 % (20.0-50.0); MEAN CORPUSCULAR HEMOGLOBIN 23.3 pg (28.0-32.0); MEAN CORPUSCULAR VOLUME 75.7 fL (81.0-99.0); MEAN PLATELET VOLUME 9.2 fl (7.4-10.4); MONOCYTES % 13.3 % (2.0-8.0); NEUTROPHILS % 77.6 % (40.0-76.0); PLATELET 364 x1000/uL (130-400); RED BLOOD CELL COUNT 4.63 mill/uL (4.2-5.4); RED CELL DISTRIBUTION WIDTH 17.3 % (11.6-14.6)
[2021-10-02] MEDS ORDERED: VANCOMYCIN 1G PREMIX 200 ML IV SCH (12:15)
[2021-10-02 12:23] LABS: CHLORIDE 112 mEq/L (98-107)
[2021-10-02 12:30] LABS: ETHANOL BLOOD < 10 mg/dL
[2021-10-02 12:31] LABS: BG BASE EXCESS 0.1 mmol/L (-2.0-2.0); BG CARBOXYHEMOGLOBIN 0.2 % (0.5-1.5); BG DEOXYHEMOGLOBIN 6.7 % (0.0-5.0); BG HCO3 ACT 24.1 mmol/L (22.0-26.0); BG OXYGEN SATURATION 93.3 % (92.0-98.5); BG OXYHEMOGLOBIN 93.1 % (94.0-97.0); BG PCO2 36.9 mmHg (35.0-45.0); BG PH 7.432 (7.350-7.450); BG PO2 68.5 mmHg (75.0-100.0); BG SAMPLE SITE RIGHT RADIAL; BG TOTAL HEMOGLOBIN 12.7 g/dL (12.0-18.0); BG VENT MODE ROOM AIR
[2021-10-02 12:33] LABS: CREATINE KINASE 32 IU/L (26-192)
[2021-10-02 12:58] LABS: CLARITY URINE TURBID (CLEAR); COLOR URINE YELLOW (YELLOW); KETONES URINE TRACE (NEGATIVE); LEUKOCYTE ESTERASE URINE 3+ (NEGATIVE); NITRITE URINE POSITIVE (NEGATIVE); OCCULT BLOOD URINE 2+ (NEGATIVE); PROTEIN URINE 2+ (NEGATIVE); SPECIFIC GRAVITY URINE 1.035 (1.005-1.030)
[2021-10-02] MEDS ORDERED: PIPERACILLIN/TAZ 3.375G PREMIX 50 ML IV NR (13:00)
[2021-10-02 13:31] LABS: *AMPHETAMINES SCREEN URINE NEGATIVE (NEGATIVE); *BARBITURATES SCREEN URINE NEGATIVE (NEGATIVE); *BENZODIAZEPINES SCREEN URINE NEGATIVE (NEGATIVE); *COCAINE SCREEN URINE NEGATIVE (NEGATIVE)
[2021-10-02 13:32] LABS: CANNABINOID URINE SCREEN NEGATIVE (NEGATIVE); METHADONE URINE SCREEN NEGATIVE (NEGATIVE); OPIATES URINE SCREEN NEGATIVE (NEGATIVE)
[2021-10-02 13:39] LABS: PHENCYCLIDINE URINE SCREEN NEGATIVE (NEGATIVE)
[2021-10-02] MEDS ORDERED: ONDANSETRON HCL 4MG/2ML INJ IV PRN (16:45)
[2021-10-02] MEDS ORDERED: GUAIFENESIN 200MG/10ML SUGAR FREE UDC PO PRN (16:45)
[2021-10-02] MEDS ORDERED: IPRATROPIUM/ALBUTEROL 0.5-3(2.5)MG/3ML NEB NEB PRN (16:45)
[2021-10-02] MEDS ORDERED: ACETAMINOPHEN 325MG TABLET PO PRN ×2 (16:45)
[2021-10-02] MEDS ORDERED: NITROGLYCERIN 0.4MG TABLET SL SL PRN (16:45)
[2021-10-02] MEDS ORDERED: DEXTROSE 50% WATER 50ML SYRINGE IV PRN (16:45)
[2021-10-02] MEDS ORDERED: CLONIDINE 0.1MG TABLET PO PRN (16:45)
[2021-10-02] MEDS ORDERED: DOCUSATE SODIUM 100MG CAPSULE PO PRN (16:45)
[2021-10-02] MEDS ORDERED: MAGNESIUM/ALUMINUM HYDROXIDE/SIMETHICONE 30ML UDC PO PRN (16:45)
[2021-10-02] MEDS ORDERED: NALOXONE HCL 0.4MG/ML VIAL IV PRN (17:15)
[2021-10-02 18:45] VITALS: BP 155/97
[2021-10-02] MEDS: ENOXAPARIN 30MG/0.3ML SYR SUBCUT SCH (19:51)
[2021-10-02] MEDS: DILTIAZEM HCL 60MG TABLET PO SCH ×2 (19:51→20:44)
[2021-10-02 20:00] VITALS: BP_SYST 154; BP_SYST 161; BP_DIAS 82; BP_DIAS 97
[2021-10-02] MEDS: FAMOTIDINE 20MG TABLET PO SCH (20:43)
[2021-10-02] MEDS: ASCORBIC ACID 500 MG TABLET PO SCH (20:43)
[2021-10-02] MEDS: BLOOD SUGAR DIAGNOSTIC STRIP TEST SCH (20:44)
[2021-10-02] MEDS: MEROPENEM 1,000 MG in SODIUM CHLORIDE 0.9% 100 ML IV SCH (20:53)
[2021-10-02] MEDS: VANCOMYCIN 1GM PMX (XELLIA) 200 ML IV SCH (20:54)
[2021-10-02] MEDS: SODIUM CHLORIDE 0.45% 1,000 ML IV SCH (20:59)
[2021-10-02] MEDS ORDERED: PIPERACILLIN/TAZ 3.375G PREMIX 50 ML IV SCH (21:00)
[2021-10-02] MEDS ORDERED: ZOLPIDEM TARTRATE 5MG TABLET PO PRN (21:00)
[2021-10-02] MEDS: INSULIN LISPRO 100 UNITS/ML SUBCUT SCH ×2 (21:03→21:21)
[2021-10-02] MEDS ORDERED: INSULIN GLARGINE UD 100 UNITS/ML SYR SUBCUT SCH (22:00)
[2021-10-02] MEDS: INSULIN GLARGINE UD 100 UNITS/ML SYR SUBCUT SCH (23:06)
[2021-10-03] VITALS (12 sets, daily range): BP systolic 116–161; BP diastolic 69–88
[2021-10-03] MEDS: DILTIAZEM HCL 60MG TABLET PO SCH ×5 (00:59→23:15)
[2021-10-03 01:50] LABS: CREATINE KINASE 47 IU/L (26-192)
[2021-10-03 01:51] LABS: CREATINE KINASE MB FRACTION < 1.0 ng/mL (0.5-3.6)
[2021-10-03] MEDS: ENOXAPARIN 30MG/0.3ML SYR SUBCUT SCH ×2 (06:03→18:09)
[2021-10-03] MEDS: BLOOD SUGAR DIAGNOSTIC STRIP TEST SCH ×4 (06:05→20:47)
[2021-10-03 06:41] LABS: BASOPHILS % 0.6 % (0.0-2.0); EOSINOPHILS % 0.7 % (0.0-5.0); HEMATOCRIT. 34.2 % (36.0-48.0); HEMOGLOBIN. 10.5 g/dL (12.0-16.0); LYMPHOCYTES % 8.7 % (20.0-50.0); MEAN CORPUSCULAR HEMOGLOBIN 23.2 pg (28.0-32.0); MEAN CORPUSCULAR VOLUME 75.4 fL (81.0-99.0); MEAN PLATELET VOLUME 9.6 fl (7.4-10.4); MONOCYTES % 12.3 % (2.0-8.0); NEUTROPHILS % 77.7 % (40.0-76.0); PLATELET 336 x1000/uL (130-400); RED BLOOD CELL COUNT 4.54 mill/uL (4.2-5.4); RED CELL DISTRIBUTION WIDTH 17.8 % (11.6-14.6)
[2021-10-03 06:58] LABS: CHLORIDE 120 mEq/L (98-107)
[2021-10-03 07:19] LABS: PHOSPHORUS 1.6 mg/dL (2.5-4.9)
[2021-10-03 07:22] LABS: CREATINE KINASE 61 IU/L (26-192)
[2021-10-03 07:27] LABS: CREATINE KINASE MB FRACTION < 1.0 ng/mL (0.5-3.6)
[2021-10-03] MEDS: CHOLECALCIFEROL (D3) 1000 UNIT TABLET PO SCH (08:23)
[2021-10-03] MEDS: ASPIRIN 325MG EC TABLET PO SCH (08:23)
[2021-10-03] MEDS: ZINC SULFATE 220 MG ( 50 ) CAPSULE PO SCH (08:23)
[2021-10-03] MEDS: ASCORBIC ACID 500 MG TABLET PO SCH ×2 (08:23→20:46)
[2021-10-03] MEDS: INSULIN LISPRO 100 UNITS/ML SUBCUT SCH ×4 (08:26→20:47)
[2021-10-03] MEDS: MEROPENEM 1,000 MG in SODIUM CHLORIDE 0.9% 100 ML IV SCH ×2 (08:27→20:46)
[2021-10-03] MEDS: SODIUM CHLORIDE 0.45% 1,000 ML IV SCH ×2 (10:50→23:15)
[2021-10-03] MEDS ORDERED: POTASSIUM CHLORIDE 20MEQ TABLET SR PO SCH (12:45)
[2021-10-03] MEDS: VANCOMYCIN 1GM PMX (XELLIA) 200 ML IV SCH (18:09)
[2021-10-03] MEDS: FAMOTIDINE 20MG TABLET PO SCH (20:47)
[2021-10-03] MEDS: INSULIN GLARGINE UD 100 UNITS/ML SYR SUBCUT SCH (21:46)
[2021-10-04] VITALS (12 sets, daily range): BP systolic 107–138; BP diastolic 67–84
[2021-10-04] MEDS: ENOXAPARIN 30MG/0.3ML SYR SUBCUT SCH ×2 (05:16→17:45)
[2021-10-04] MEDS: DILTIAZEM HCL 60MG TABLET PO SCH ×4 (05:17→23:07)
[2021-10-04] MEDS: BLOOD SUGAR DIAGNOSTIC STRIP TEST SCH ×4 (06:41→21:00)
[2021-10-04 07:24] LABS: EOSINOPHILS % 3.3 % (0.0-5.0); HEMATOCRIT. 31.6 % (36.0-48.0); HEMOGLOBIN. 9.9 g/dL (12.0-16.0); LYMPHOCYTES % 18.6 % (20.0-50.0); MEAN CORPUSCULAR HEMOGLOBIN 23.7 pg (28.0-32.0); MEAN CORPUSCULAR VOLUME 75.3 fL (81.0-99.0); MONOCYTES % 6.8 % (2.0-8.0); NEUTROPHILS % 70.3 % (40.0-76.0); RED CELL DISTRIBUTION WIDTH 17.2 % (11.6-14.6)
[2021-10-04] MEDS: INSULIN LISPRO 100 UNITS/ML SUBCUT SCH ×4 (07:40→21:55)
[2021-10-04 07:43] LABS: CHLORIDE 112 mEq/L (98-107)
[2021-10-04] MEDS: ASPIRIN 325MG EC TABLET PO SCH (08:31)
[2021-10-04] MEDS: MEROPENEM 1,000 MG in SODIUM CHLORIDE 0.9% 100 ML IV SCH ×2 (08:32→21:49)
[2021-10-04] MEDS: CHOLECALCIFEROL (D3) 1000 UNIT TABLET PO SCH (08:32)
[2021-10-04] MEDS: ASCORBIC ACID 500 MG TABLET PO SCH ×2 (08:32→21:49)
[2021-10-04] MEDS: ZINC SULFATE 220 MG ( 50 ) CAPSULE PO SCH (08:32)
[2021-10-04] MEDS ORDERED: POTASSIUM CHLORIDE 20MEQ TABLET SR PO NR (10:05)
[2021-10-04 10:52] LABS: PLATELET 315 x1000/uL (130-400)
[2021-10-04] MEDS: SODIUM CHLORIDE 0.45% 1,000 ML IV SCH (11:59)
[2021-10-04] MEDS: VANCOMYCIN 1GM PMX (XELLIA) 200 ML IV SCH (17:46)
[2021-10-04] MEDS: TRAMADOL 50MG TABLET PO PRN (18:59)
[2021-10-04] MEDS: FAMOTIDINE 20MG TABLET PO SCH (21:49)
[2021-10-04] MEDS: INSULIN GLARGINE UD 100 UNITS/ML SYR SUBCUT SCH (21:55)
[2021-10-05] VITALS (13 sets, daily range): BP systolic 123–165; BP diastolic 65–91
[2021-10-05] MEDS: SODIUM CHLORIDE 0.45% 1,000 ML IV SCH ×3 (02:58→18:11)
[2021-10-05] MEDS: DILTIAZEM HCL 60MG TABLET PO SCH ×3 (06:08→18:10)
[2021-10-05] MEDS: TRAMADOL 50MG TABLET PO PRN (06:09)
[2021-10-05] MEDS: ENOXAPARIN 30MG/0.3ML SYR SUBCUT SCH ×2 (06:10→18:07)
[2021-10-05] MEDS: BLOOD SUGAR DIAGNOSTIC STRIP TEST SCH ×4 (06:10→21:00)
[2021-10-05 07:00] LABS: HEMATOCRIT 33.4 % (36.0-48.0); HEMOGLOBIN 10.4 g/dL (12.0-16.0); MEAN CORPUSCULAR HEMOGLOBIN 23.3 pg (28.0-32.0); PLATELET 377 x1000/uL (130-400); RED BLOOD CELL COUNT 4.45 mill/uL (4.2-5.4); RED CELL DISTRIBUTION WIDTH 17.2 % (11.6-14.6)
[2021-10-05 07:05] LABS: CHLORIDE 107 mEq/L (98-107)
[2021-10-05] MEDS: CHOLECALCIFEROL (D3) 1000 UNIT TABLET PO SCH (08:49)
[2021-10-05] MEDS: ZINC SULFATE 220 MG ( 50 ) CAPSULE PO SCH (08:49)
[2021-10-05] MEDS: INSULIN LISPRO 100 UNITS/ML SUBCUT SCH ×4 (08:49→21:24)
[2021-10-05] MEDS: ASCORBIC ACID 500 MG TABLET PO SCH ×2 (08:49→21:22)
[2021-10-05] MEDS: ASPIRIN 325MG EC TABLET PO SCH (08:49)
[2021-10-05] MEDS: MEROPENEM 1,000 MG in SODIUM CHLORIDE 0.9% 100 ML IV SCH (08:50)
[2021-10-05] MEDS ORDERED: POTASSIUM CHLORIDE INJ 40 MEQ in DEXT 5% WATER 250 ML IV ONE (09:30)
[2021-10-05] MEDS ORDERED: POTASSIUM CHLORIDE 20MEQ TABLET SR PO SCH (09:30)
[2021-10-05] MEDS: KCL 20MEQ/100ML X 2 FOR TOTAL KCL 40MEQ/200ML IV SCH ×2 (10:43→13:22)
[2021-10-05] MEDS ORDERED: VANCOMYCIN 1GM PMX (XELLIA) 200 ML IV SCH (12:00)
[2021-10-05] MEDS ORDERED: CEFTRIAXONE 1 G PREMIX 50 ML IV SCH (13:30)
[2021-10-05] MEDS: CEFTRIAXONE 1,000 MG in DEXTROSE 5% WATER 50 ML IV SCH (16:16)
[2021-10-05] MEDS: FAMOTIDINE 20MG TABLET PO SCH (21:22)
[2021-10-05] MEDS: INSULIN GLARGINE UD 100 UNITS/ML SYR SUBCUT SCH (21:25)
[2021-10-06] VITALS (11 sets, daily range): BP systolic 97–151; BP diastolic 66–98
[2021-10-06] MEDS: SODIUM CHLORIDE 0.45% 1,000 ML IV SCH ×2 (00:37→22:08)
[2021-10-06] MEDS: DILTIAZEM HCL 60MG TABLET PO SCH ×4 (00:37→17:37)
[2021-10-06] MEDS: ENOXAPARIN 30MG/0.3ML SYR SUBCUT SCH ×2 (06:01→17:37)
[2021-10-06] MEDS: BLOOD SUGAR DIAGNOSTIC STRIP TEST SCH ×4 (06:02→20:27)
[2021-10-06 07:31] LABS: CHLORIDE 106 mEq/L (98-107)
[2021-10-06] MEDS: FAMOTIDINE 20MG TABLET PO SCH ×2 (08:17→20:30)
[2021-10-06] MEDS: CHOLECALCIFEROL (D3) 1000 UNIT TABLET PO SCH (08:17)
[2021-10-06] MEDS: INSULIN LISPRO 100 UNITS/ML SUBCUT SCH ×4 (08:17→20:35)
[2021-10-06] MEDS: ASPIRIN 325MG EC TABLET PO SCH (08:17)
[2021-10-06] MEDS: ASCORBIC ACID 500 MG TABLET PO SCH ×2 (08:17→20:30)
[2021-10-06] MEDS: ZINC SULFATE 220 MG ( 50 ) CAPSULE PO SCH (08:17)
[2021-10-06] MEDS ORDERED: POTASSIUM CHLORIDE INJ 40 MEQ in DEXT 5% WATER 250 ML IV ONE (08:45)
[2021-10-06] MEDS ORDERED: POTASSIUM CHLORIDE 20MEQ TABLET SR PO SCH (09:00)
[2021-10-06] MEDS: KCL 20MEQ/100ML X 2 FOR TOTAL KCL 40MEQ/200ML IV SCH ×2 (09:23→12:29)
[2021-10-06 10:38] LABS: PHOSPHORUS 2.9 mg/dL (2.5-4.9)
[2021-10-06] MEDS: TRAMADOL 50MG TABLET PO PRN (10:58)
[2021-10-06] MEDS ORDERED: LIDOCAINE HCL 1% 20ML VIAL (Pyxis) INJ ONE (12:52)
[2021-10-06] MEDS: CEFTRIAXONE 1,000 MG in DEXTROSE 5% WATER 50 ML IV SCH (14:54)
[2021-10-06] MEDS: INSULIN GLARGINE UD 100 UNITS/ML SYR SUBCUT SCH (22:13)
[2021-10-07] VITALS (11 sets, daily range): BP systolic 140–163; BP diastolic 72–91
[2021-10-07] MEDS: DILTIAZEM HCL 60MG TABLET PO SCH ×4 (00:24→17:12)
[2021-10-07] MEDS: ENOXAPARIN 30MG/0.3ML SYR SUBCUT SCH ×2 (06:32→17:12)
[2021-10-07 06:39] LABS: BASOPHILS % 0.4 % (0.0-2.0); EOSINOPHILS % 2.8 % (0.0-5.0); HEMATOCRIT. 33.8 % (36.0-48.0); HEMOGLOBIN. 10.9 g/dL (12.0-16.0); MEAN CORPUSCULAR HEMOGLOBIN 23.8 pg (28.0-32.0); MEAN CORPUSCULAR VOLUME 73.5 fL (81.0-99.0); MEAN PLATELET VOLUME 9.6 fl (7.4-10.4); MONOCYTES % 4.8 % (2.0-8.0); PLATELET 434 x1000/uL (130-400)
[2021-10-07] MEDS: BLOOD SUGAR DIAGNOSTIC STRIP TEST SCH ×3 (06:39→16:45)
[2021-10-07 06:40] LABS: CHLORIDE 106 mEq/L (98-107)
[2021-10-07 06:46] LABS: PHOSPHORUS 3.2 mg/dL (2.5-4.9)
[2021-10-07] MEDS: SODIUM CHLORIDE 0.45% 1,000 ML IV SCH (08:00)
[2021-10-07] MEDS: ASCORBIC ACID 500 MG TABLET PO SCH (08:38)
[2021-10-07] MEDS: ASPIRIN 325MG EC TABLET PO SCH (08:38)
[2021-10-07] MEDS: CHOLECALCIFEROL (D3) 1000 UNIT TABLET PO SCH (08:39)
[2021-10-07] MEDS: ZINC SULFATE 220 MG ( 50 ) CAPSULE PO SCH (08:39)
[2021-10-07] MEDS: INSULIN LISPRO 100 UNITS/ML SUBCUT SCH ×3 (08:40→17:12)
[2021-10-07] MEDS: FAMOTIDINE 20MG TABLET PO SCH (09:00)
[2021-10-07] MEDS ORDERED: POTASSIUM CHLORIDE 20MEQ TABLET SR PO NR (11:00)
[2021-10-07] MEDS ORDERED: POTASSIUM CHLORIDE 10MEQ TABLET SR PO SCH (11:00)
[2021-10-07] MEDS ORDERED: MAGNESIUM 2 G PREMIX 50 ML IV NR (12:00)
[2021-10-07] MEDS: CEFTRIAXONE 1,000 MG in DEXTROSE 5% WATER 50 ML IV SCH (15:00)
[2021-10-07] MEDS ORDERED: ATORVASTATIN CALCIUM 10MG TABLET PO SCH (21:00)
== END 2021-10-07 19:55 | DRG 871 ==
LOC: ER 10:59 → 3WST 15:23 → EDBEDREQTM 15:28 → EDBEDREQSVC 15:28 → EDBEDREQ 15:28 → ENRESERV 15:37
PROVIDERS: ADMIT Internal Medicine; ATTEND Internal Medicine
PROC: 02HV33Z Insertion of Infusion Device into Superior Vena Cava, Percutaneous Approach (ICD-10-PCS; principal; 2021-10-06)
PROC: B548ZZA Ultrasonography of Superior Vena Cava, Guidance (ICD-10-PCS; 2021-10-06)
DX: A41.51 Sepsis due to Escherichia coli [E. coli] (principal); E43 Unspecified severe protein-calorie malnutrition; G92.8 Other toxic encephalopathy; J18.9 Pneumonia, unspecified organism; E87.0 Hyperosmolality and hypernatremia; N39.0 Urinary tract infection, site not specified; N17.9 Acute kidney failure, unspecified; D63.8 Anemia in other chronic diseases classified elsewhere; R65.20 Severe sepsis without septic shock; E66.9 Obesity, unspecified; E11.65 Type 2 diabetes mellitus with hyperglycemia; I10 Essential (primary) hypertension; E78.00 Pure hypercholesterolemia, unspecified; Z82.49 Family history of ischemic heart disease and other diseases of the circulatory system; Z86.73 Personal history of transient ischemic attack (TIA), and cerebral infarction without residual deficits; Z79.4 Long term (current) use of insulin; Z68.39 Body mass index [BMI] 39.0-39.9, adult
CPT/HCPCS: 36415; 36600; 70496; 71045; 76937; 80048; 80053; 80061; 80202; 80305; 80320; 81003; 82375; 82550; 82553; 82805; 82962; 83036; 83605; 83735; 83880; 84100; 84145; 84484; 85025; 85027; 86140; 87077; 87186; 87426; 92610; 93005; 93970; 97165; 99291; C1725; C1769; J0696; J1650; J1815; J2185; J2543; J3370; J3475; J3480; J3490; J7030; J7050; J7060; Q9967; G0480

== ENCOUNTER 2022-01-13 16:50 | Inpatient (IN) | payer MEDICARE, MEDICAID ==
[~2022-01-13] VITALS: Ht 170.2 cm; Wt 114.3 kg
[2022-01-13] MEDS ORDERED: SODIUM CHLORIDE 0.9% 1000ML BAG (SEPSIS BOLUS) IV ONE (19:45)
[2022-01-13 19:50] LABS: BASOPHILS % 0.3 % (0.0-2.0); EOSINOPHILS % 3.2 % (0.0-5.0); LYMPHOCYTES % 26.8 % (20.0-50.0); MEAN CORPUSCULAR HEMOGLOBIN 24.2 pg (28.0-32.0); MEAN CORPUSCULAR VOLUME 77.1 fL (81.0-99.0); MEAN PLATELET VOLUME 9.2 fl (7.4-10.4); MONOCYTES % 5.9 % (2.0-8.0); NEUTROPHILS % 63.8 % (40.0-76.0); PLATELET 390 x1000/uL (130-400); RED BLOOD CELL COUNT 4.54 mill/uL (4.2-5.4); RED CELL DISTRIBUTION WIDTH 16.6 % (11.6-14.6)
[2022-01-13 19:58] LABS: CLARITY URINE CLEAR (CLEAR); COLOR URINE YELLOW (YELLOW); KETONES URINE NEGATIVE (NEGATIVE); LEUKOCYTE ESTERASE URINE NEGATIVE (NEGATIVE); NITRITE URINE NEGATIVE (NEGATIVE); OCCULT BLOOD URINE NEGATIVE (NEGATIVE); PROTEIN URINE NEGATIVE (NEGATIVE); SPECIFIC GRAVITY URINE 1.016 (1.005-1.030); UROBILINOGEN URINE 0.2 E.U./dL (0.2-1.0)
[2022-01-13 20:00] LABS: CHLORIDE 105 mEq/L (98-107)
[2022-01-13] MEDS ORDERED: METOPROLOL TARTRATE 25MG TABLET PO SCH (21:00)
[2022-01-13] MEDS ORDERED: NITROGLYCERIN 0.4MG TABLET SL SL PRN (21:00)
[2022-01-13] MEDS ORDERED: ACETAMINOPHEN 325MG TABLET PO PRN ×2 (21:00)
[2022-01-13] MEDS ORDERED: NA PHOS,M-B/NA PHOS,DI-BA ENEMA 118ML PR PRN (21:00)
[2022-01-13] MEDS ORDERED: MAGNESIUM/ALUMINUM HYDROXIDE/SIMETHICONE 30ML UDC PO PRN (21:00)
[2022-01-13] MEDS ORDERED: GUAIFENESIN 200MG/10ML SUGAR FREE UDC PO PRN (21:00)
[2022-01-13] MEDS ORDERED: FAMOTIDINE 20MG TABLET PO SCH (21:00)
[2022-01-13] MEDS ORDERED: IPRATROPIUM/ALBUTEROL 0.5-3(2.5)MG/3ML NEB NEB PRN (21:00)
[2022-01-13] MEDS ORDERED: ONDANSETRON HCL 4MG/2ML INJ IV PRN (21:00)
[2022-01-13] MEDS ORDERED: ENOXAPARIN 40MG/0.4ML SYR SUBCUT SCH (21:00)
[2022-01-13] MEDS ORDERED: DEXTROSE 50% WATER 50ML SYRINGE IV PRN (21:00)
[2022-01-13] MEDS ORDERED: VANCOMYCIN 1G PREMIX 200 ML IV ONE (21:15)
[2022-01-13] MEDS ORDERED: PIPERACILLIN/TAZ 3.375G PREMIX 50 ML IV ONE (21:15)
[2022-01-13] MEDS ORDERED: LEVOFLOXACIN 500MG PREMIX 100 ML IV SCH (22:00)
[2022-01-13] MEDS ORDERED: ASCORBIC ACID 500 MG TABLET PO SCH (22:00)
[2022-01-13] MEDS: ENOXAPARIN 30MG/0.3ML SYR SUBCUT SCH (22:00)
[2022-01-13] MEDS: ATORVASTATIN CALCIUM 20MG TABLET PO SCH (22:00)
[2022-01-13 22:08] LABS: T4 FREE 0.89 ng/dL (0.76-1.46)
[2022-01-13 22:29] LABS: FOLIC ACID (FOLATE) SERUM 9.8 ng/mL (>5.38)
[2022-01-13] MEDS ORDERED: CEFTRIAXONE 1 G PREMIX 50 ML IV SCH (22:30)
[2022-01-13 23:34] LABS: *AMPHETAMINES SCREEN URINE NEGATIVE (NEGATIVE); *BARBITURATES SCREEN URINE NEGATIVE (NEGATIVE); *BENZODIAZEPINES SCREEN URINE NEGATIVE (NEGATIVE); *COCAINE SCREEN URINE NEGATIVE (NEGATIVE); CANNABINOID URINE SCREEN NEGATIVE (NEGATIVE); METHADONE URINE SCREEN NEGATIVE (NEGATIVE); OPIATES URINE SCREEN NEGATIVE (NEGATIVE); PHENCYCLIDINE URINE SCREEN NEGATIVE (NEGATIVE)
[2022-01-13 23:43] VITALS: BP 142/82
[2022-01-14] VITALS: BP 142/82
[2022-01-14 04:00] VITALS: BP 140/77
[2022-01-14] MEDS: BLOOD SUGAR DIAGNOSTIC STRIP TEST SCH ×4 (06:34→20:53)
[2022-01-14 08:00] VITALS: BP 141/42
[2022-01-14] MEDS: ZINC SULFATE 220 MG ( 50 ) CAPSULE PO SCH (08:20)
[2022-01-14] MEDS: ASCORBIC ACID 500 MG TABLET PO SCH ×2 (08:20→21:24)
[2022-01-14] MEDS: ASPIRIN 325MG EC TABLET PO SCH (08:20)
[2022-01-14] MEDS: METOPROLOL TARTRATE 25MG TABLET PO SCH ×2 (08:20→21:19)
[2022-01-14] MEDS: FAMOTIDINE 20MG TABLET PO SCH ×2 (08:20→21:18)
[2022-01-14] MEDS: INSULIN LISPRO 100 UNITS/ML SUBCUT SCH ×4 (08:27→21:18)
[2022-01-14 09:26] LABS: CREATINE KINASE 27 IU/L (26-192); CREATINE KINASE MB FRACTION < 1.0 ng/mL (0.5-3.6)
[2022-01-14 09:31] LABS: CHLORIDE 106 mEq/L (98-107)
[2022-01-14 09:39] LABS: PHOSPHORUS 3.2 mg/dL (2.5-4.9)
[2022-01-14] MEDS ORDERED: NALOXONE HCL 0.4MG/ML VIAL IV PRN (10:30)
[2022-01-14] MEDS: HYDROCODONE/ACETAMINOPHEN 5/325MG TABLET PO PRN (11:56)
[2022-01-14 12:00] VITALS: BP 148/79
[2022-01-14 12:02] LABS: BASOPHILS % 0.5 % (0.0-2.0); EOSINOPHILS % 3.6 % (0.0-5.0); HEMATOCRIT. 33.6 % (36.0-48.0); HEMOGLOBIN. 10.5 g/dL (12.0-16.0); LYMPHOCYTES % 17.3 % (20.0-50.0); MEAN CORPUSCULAR HEMOGLOBIN 23.7 pg (28.0-32.0); MEAN PLATELET VOLUME 9.1 fl (7.4-10.4); MONOCYTES % 5.3 % (2.0-8.0); NEUTROPHILS % 73.3 % (40.0-76.0); PLATELET 373 x1000/uL (130-400); RED BLOOD CELL COUNT 4.43 mill/uL (4.2-5.4); RED CELL DISTRIBUTION WIDTH 17.4 % (11.6-14.6)
[2022-01-14] MEDS: CHOLECALCIFEROL (D3) 1000 UNIT TABLET PO SCH (12:06)
[2022-01-14] MEDS: ENOXAPARIN 30MG/0.3ML SYR SUBCUT SCH ×2 (12:07→21:24)
[2022-01-14 16:00] VITALS: BP 137/86
[2022-01-14 20:00] VITALS: BP 143/79
[2022-01-14] MEDS: LEVOFLOXACIN 500MG PREMIX 100 ML IV SCH (20:52)
[2022-01-14] MEDS: CEFTRIAXONE 1,000 MG in DEXTROSE 5% WATER 50 ML IV SCH (20:52)
[2022-01-14] MEDS: ATORVASTATIN CALCIUM 20MG TABLET PO SCH (21:19)
[2022-01-14] MEDS: KETOROLAC 15MG/ML VIAL IV PRN (22:16)
[2022-01-15] VITALS: BP 126/64
[2022-01-15 04:00] VITALS: BP 122/68
[2022-01-15] MEDS: BLOOD SUGAR DIAGNOSTIC STRIP TEST SCH ×4 (07:53→21:00)
[2022-01-15 08:00] VITALS: BP 153/87
[2022-01-15] MEDS: DOCUSATE SODIUM 100MG CAPSULE PO PRN (08:27)
[2022-01-15] MEDS: ZINC SULFATE 220 MG ( 50 ) CAPSULE PO SCH (08:27)
[2022-01-15] MEDS: ASCORBIC ACID 500 MG TABLET PO SCH ×2 (08:27→21:36)
[2022-01-15] MEDS: CHOLECALCIFEROL (D3) 1000 UNIT TABLET PO SCH (08:27)
[2022-01-15] MEDS: METOPROLOL TARTRATE 25MG TABLET PO SCH ×2 (08:27→21:37)
[2022-01-15] MEDS: ENOXAPARIN 30MG/0.3ML SYR SUBCUT SCH ×2 (08:28→22:59)
[2022-01-15] MEDS: FAMOTIDINE 20MG TABLET PO SCH ×2 (08:28→21:36)
[2022-01-15] MEDS: ASPIRIN 325MG EC TABLET PO SCH (08:28)
[2022-01-15] MEDS: INSULIN LISPRO 100 UNITS/ML SUBCUT SCH ×4 (08:32→21:00)
[2022-01-15] MEDS: KETOROLAC 15MG/ML VIAL IV PRN (08:37)
[2022-01-15] MEDS ORDERED: BUTALBITAL/ACETAMINOPHEN/CAFFEINE 50/325/40MG TABLET PO PRN (11:00)
[2022-01-15 12:00] VITALS: BP 141/84
[2022-01-15 16:00] VITALS: BP 158/92
[2022-01-15 20:00] VITALS: BP 158/82
[2022-01-15] MEDS: ATORVASTATIN CALCIUM 20MG TABLET PO SCH (21:36)
[2022-01-15] MEDS: LEVOFLOXACIN 500MG PREMIX 100 ML IV SCH (21:36)
[2022-01-15] MEDS: CEFTRIAXONE 1,000 MG in DEXTROSE 5% WATER 50 ML IV SCH (23:00)
[2022-01-16] VITALS: BP 166/80
[2022-01-16] MEDS: ZOLPIDEM TARTRATE 5MG TABLET PO PRN (02:48)
[2022-01-16] MEDS: CLONIDINE 0.1MG TABLET PO PRN (02:49)
[2022-01-16] MEDS ORDERED: PNEUMOCOCCAL 23-VAL P-SAC VAC 0.5 ML IM ONE (03:00)
[2022-01-16 04:00] VITALS: BP 152/87
[2022-01-16] MEDS: BLOOD SUGAR DIAGNOSTIC STRIP TEST SCH ×4 (06:43→21:07)
[2022-01-16 08:00] VITALS: BP 145/77
[2022-01-16] MEDS: ZINC SULFATE 220 MG ( 50 ) CAPSULE PO SCH (08:32)
[2022-01-16] MEDS: ASCORBIC ACID 500 MG TABLET PO SCH ×2 (08:32→21:06)
[2022-01-16] MEDS: ASPIRIN 325MG EC TABLET PO SCH (08:32)
[2022-01-16] MEDS: FAMOTIDINE 20MG TABLET PO SCH ×2 (08:32→21:16)
[2022-01-16] MEDS: METOPROLOL TARTRATE 25MG TABLET PO SCH ×2 (08:34→21:05)
[2022-01-16] MEDS: INSULIN LISPRO 100 UNITS/ML SUBCUT SCH ×4 (08:34→21:16)
[2022-01-16] MEDS: DOCUSATE SODIUM 100MG CAPSULE PO PRN (10:02)
[2022-01-16] MEDS: ENOXAPARIN 30MG/0.3ML SYR SUBCUT SCH ×2 (10:03→21:17)
[2022-01-16] MEDS: CHOLECALCIFEROL (D3) 1000 UNIT TABLET PO SCH (10:17)
[2022-01-16 12:00] VITALS: BP 135/50
[2022-01-16 16:00] VITALS: BP 151/77
[2022-01-16 20:00] VITALS: BP 143/79
[2022-01-16] MEDS: ATORVASTATIN CALCIUM 20MG TABLET PO SCH (21:05)
[2022-01-16] MEDS: LEVOFLOXACIN 500MG PREMIX 100 ML IV SCH (21:06)
[2022-01-16] MEDS: CEFTRIAXONE 1,000 MG in DEXTROSE 5% WATER 50 ML IV SCH (21:06)
[2022-01-16] MEDS: KETOROLAC 15MG/ML VIAL IV PRN (21:26)
[2022-01-17] VITALS: BP 155/79
[2022-01-17 04:00] VITALS: BP_SYST 113; BP_SYST 149; BP_DIAS 76; BP_DIAS 86
[2022-01-17] MEDS: BLOOD SUGAR DIAGNOSTIC STRIP TEST SCH ×4 (07:41→20:59)
[2022-01-17 08:00] VITALS: BP 148/90
[2022-01-17] MEDS: FAMOTIDINE 20MG TABLET PO SCH ×2 (08:22→21:06)
[2022-01-17] MEDS: ASCORBIC ACID 500 MG TABLET PO SCH ×2 (08:22→21:05)
[2022-01-17] MEDS: ZINC SULFATE 220 MG ( 50 ) CAPSULE PO SCH (08:22)
[2022-01-17] MEDS: CHOLECALCIFEROL (D3) 1000 UNIT TABLET PO SCH (08:22)
[2022-01-17] MEDS: INSULIN LISPRO 100 UNITS/ML SUBCUT SCH ×4 (08:23→20:59)
[2022-01-17] MEDS: ASPIRIN 325MG EC TABLET PO SCH (08:24)
[2022-01-17] MEDS: METOPROLOL TARTRATE 25MG TABLET PO SCH ×2 (08:30→21:05)
[2022-01-17] MEDS: ENOXAPARIN 30MG/0.3ML SYR SUBCUT SCH ×2 (09:25→21:06)
[2022-01-17 12:00] VITALS: BP 143/85
[2022-01-17] MEDS: HYDROCODONE/ACETAMINOPHEN 5/325MG TABLET PO PRN (14:25)
[2022-01-17 16:00] VITALS: BP 139/83
[2022-01-17 20:00] VITALS: BP 113/76
[2022-01-17] MEDS: CEFTRIAXONE 1,000 MG in DEXTROSE 5% WATER 50 ML IV SCH (20:54)
[2022-01-17] MEDS: LEVOFLOXACIN 500MG PREMIX 100 ML IV SCH (20:54)
[2022-01-17] MEDS ORDERED: LACTULOSE 20G/30ML UDC PO SCH (21:00)
[2022-01-17] MEDS: ATORVASTATIN CALCIUM 20MG TABLET PO SCH (21:05)
[2022-01-17] MEDS: ZOLPIDEM TARTRATE 5MG TABLET PO PRN (21:51)
[2022-01-18] VITALS: BP 174/90
[2022-01-18 04:00] VITALS: BP 178/93
[2022-01-18] MEDS: CLONIDINE 0.1MG TABLET PO PRN (05:42)
[2022-01-18] MEDS: BLOOD SUGAR DIAGNOSTIC STRIP TEST SCH (07:40)
[2022-01-18] MEDS: INSULIN LISPRO 100 UNITS/ML SUBCUT SCH (09:44)
[2022-01-18] MEDS: ZINC SULFATE 220 MG ( 50 ) CAPSULE PO SCH (09:46)
[2022-01-18] MEDS: CHOLECALCIFEROL (D3) 1000 UNIT TABLET PO SCH (09:46)
[2022-01-18] MEDS: FAMOTIDINE 20MG TABLET PO SCH (09:46)
[2022-01-18] MEDS: ASPIRIN 325MG EC TABLET PO SCH (09:46)
[2022-01-18] MEDS: ASCORBIC ACID 500 MG TABLET PO SCH (09:47)
[2022-01-18] MEDS: METOPROLOL TARTRATE 25MG TABLET PO SCH (09:48)
[2022-01-18] MEDS: ENOXAPARIN 30MG/0.3ML SYR SUBCUT SCH (09:52)
== END 2022-01-18 12:29 | DRG 871 ==
LOC: ER 16:50 → 7WST 21:07 → EDBEDREQ 21:18 → EDBEDREQTM 21:18 → ENRESERV 22:41
PROVIDERS: ADMIT Internal Medicine; ATTEND Internal Medicine
DX: A41.9 Sepsis, unspecified organism (principal); G92.8 Other toxic encephalopathy; E44.1 Mild protein-calorie malnutrition; I10 Essential (primary) hypertension; E11.9 Type 2 diabetes mellitus without complications; E66.9 Obesity, unspecified; E78.00 Pure hypercholesterolemia, unspecified; Z79.4 Long term (current) use of insulin; Z82.49 Family history of ischemic heart disease and other diseases of the circulatory system; Z86.718 Personal history of other venous thrombosis and embolism; Z86.73 Personal history of transient ischemic attack (TIA), and cerebral infarction without residual deficits; Z68.39 Body mass index [BMI] 39.0-39.9, adult; Z79.899 Other long term (current) drug therapy; Z79.82 Long term (current) use of aspirin
CPT/HCPCS: 36415; 71045; 80053; 80061; 80305; 81003; 82140; 82550; 82553; 82607; 82746; 82962; 83036; 83540; 83550; 83605; 83735; 83880; 84100; 84145; 84439; 84443; 84484; 85025; 90732; 93005; 93970; 99291; J0696; J1650; J1815; J1885; J1956; J7030; J7060

== ENCOUNTER 2022-12-29 11:25 | Inpatient (IN) | payer MEDICARE, MEDICAID ==
[~2022-12-29] VITALS: Ht 170.2 cm; Wt 113.4 kg
[2022-12-29] MEDS ORDERED: IOHEXOL-350 100 ML BOTTLE ONE (12:04)
[2022-12-29 12:19] LABS: BASOPHILS % 0.6 % (0.0-2.0); EOSINOPHILS % 3.8 % (0.0-5.0); HEMATOCRIT. 32.6 % (36.0-48.0); HEMOGLOBIN. 10.3 g/dL (12.0-16.0); LYMPHOCYTES % 25.9 % (20.0-50.0); MEAN CORPUSCULAR HEMOGLOBIN 23.4 pg (28.0-32.0); MEAN CORPUSCULAR VOLUME 74.3 fL (81.0-99.0); MEAN PLATELET VOLUME 8.2 fl (7.4-10.4); NEUTROPHILS % 63.7 % (40.0-76.0); PLATELET 401 x1000/uL (130-400); RED BLOOD CELL COUNT 4.39 mill/uL (4.2-5.4); RED CELL DISTRIBUTION WIDTH 18.5 % (11.6-14.6)
[2022-12-29 12:30] LABS: PROTHROMBIN TIME 10.8 sec (9.6-11.0)
[2022-12-29 12:37] LABS: CHLORIDE 105 mEq/L (98-107); ETHANOL BLOOD < 10 mg/dL
[2022-12-29] MEDS ORDERED: ASPIRIN 325MG TABLET PO ONE (13:30)
[2022-12-29] MEDS ORDERED: ACETAMINOPHEN 650MG SUPP PR PRN ×2 (14:15)
[2022-12-29] MEDS ORDERED: ENOXAPARIN 40MG/0.4ML SYR SUBCUT SCH (14:15)
[2022-12-29 15:25] LABS: CLARITY URINE CLEAR (CLEAR); COLOR URINE YELLOW (YELLOW); KETONES URINE TRACE (NEGATIVE); LEUKOCYTE ESTERASE URINE NEGATIVE (NEGATIVE); NITRITE URINE NEGATIVE (NEGATIVE); OCCULT BLOOD URINE NEGATIVE (NEGATIVE); PROTEIN URINE NEGATIVE (NEGATIVE)
[2022-12-29 15:57] LABS: *AMPHETAMINES SCREEN URINE NEGATIVE (NEGATIVE); *BARBITURATES SCREEN URINE NEGATIVE (NEGATIVE); *BENZODIAZEPINES SCREEN URINE NEGATIVE (NEGATIVE); *COCAINE SCREEN URINE NEGATIVE (NEGATIVE); CANNABINOID URINE SCREEN NEGATIVE (NEGATIVE); METHADONE URINE SCREEN NEGATIVE (NEGATIVE); OPIATES URINE SCREEN PRESUMTIVE POSITIVE (NEGATIVE); PHENCYCLIDINE URINE SCREEN NEGATIVE (NEGATIVE)
[2022-12-29] MEDS: ENOXAPARIN 30MG/0.3ML SYR SUBCUT SCH (21:56)
[2022-12-30 00:15] LABS: CREATINE KINASE 31 IU/L (26-192); CREATINE KINASE MB FRACTION < 1.0 ng/mL (0.5-3.6)
[2022-12-30 01:00] VITALS: BP 168/86
[2022-12-30 01:24] VITALS: BP 168/84
[2022-12-30 04:00] VITALS: BP 137/81
[2022-12-30] MEDS ORDERED: ASCO500C18 PO (04:18)
[2022-12-30] MEDS ORDERED: LACT10SO3 MT (04:18)
[2022-12-30] MEDS ORDERED: CHOL400D7 PO (04:35)
[2022-12-30] MEDS ORDERED: DEXTL PO (04:35)
[2022-12-30] MEDS ORDERED: ONDA4TAB11 PO (04:35)
[2022-12-30] MEDS ORDERED: POLY17PO3 MT (04:37)
[2022-12-30] MEDS ORDERED: FERR325T6 PO (04:37)
[2022-12-30 06:52] LABS: CREATINE KINASE 31 IU/L (26-192); CREATINE KINASE MB FRACTION < 1.0 ng/mL (0.5-3.6)
[2022-12-30 08:00] VITALS: BP 132/87
[2022-12-30] MEDS: FAMOTIDINE 20MG/2ML VIAL IV SCH (10:36)
[2022-12-30] MEDS: ENOXAPARIN 30MG/0.3ML SYR SUBCUT SCH ×2 (10:36→21:36)
[2022-12-30 12:00] VITALS: BP 146/82
[2022-12-30] MEDS: ZINC SULFATE 220 MG ( 50 ) CAPSULE PO SCH (13:15)
[2022-12-30] MEDS: ASCORBIC ACID 250 MG TABLET PO SCH (13:15)
[2022-12-30] MEDS: ASPIRIN 81MG TABLET PO SCH (13:15)
[2022-12-30] MEDS ORDERED: VANCOMYCIN 1.25GM PMX (XELLIA) 250 ML IV SCH (14:30)
[2022-12-30 16:00] VITALS: BP 133/69
[2022-12-30] MEDS ORDERED: DEXTROSE 50% WATER 50ML SYRINGE IV PRN (16:15)
[2022-12-30] MEDS: BLOOD SUGAR DIAGNOSTIC STRIP TEST SCH ×2 (16:50→21:29)
[2022-12-30] MEDS: MEROPENEM 1,000 MG in SODIUM CHLORIDE 0.9% 100 ML IV SCH (17:21)
[2022-12-30] MEDS: FERROUS SULFATE 325MG TABLET PO SCH (17:39)
[2022-12-30] MEDS: AMLODIPINE 10MG TABLET PO SCH (17:40)
[2022-12-30] MEDS: INSULIN LISPRO 100 UNITS/ML SUBCUT SCH ×2 (18:10→21:40)
[2022-12-30] MEDS: METOPROLOL TARTRATE 25MG TABLET PO SCH (21:36)
[2022-12-30] MEDS: ATORVASTATIN CALCIUM 20MG TABLET PO SCH (21:36)
[2022-12-30] MEDS: INSULIN GLARGINE 100 UNITS/ML SUBCUT SCH (21:40)
[2022-12-31] VITALS (7 sets, daily range): BP systolic 119–145; BP diastolic 79–92
[2022-12-31] MEDS: MEROPENEM 1,000 MG in SODIUM CHLORIDE 0.9% 100 ML IV SCH ×4 (00:02→21:19)
[2022-12-31] MEDS: BLOOD SUGAR DIAGNOSTIC STRIP TEST SCH ×4 (06:05→21:19)
[2022-12-31 08:10] LABS: BASOPHILS % 0.6 % (0.0-2.0); HEMATOCRIT. 33.6 % (36.0-48.0); HEMOGLOBIN. 10.8 g/dL (12.0-16.0); MEAN CORPUSCULAR VOLUME 74.9 fL (81.0-99.0); MEAN PLATELET VOLUME 8.8 fl (7.4-10.4); MONOCYTES % 5.5 % (2.0-8.0); NEUTROPHILS % 69.9 % (40.0-76.0); PLATELET 392 x1000/uL (130-400); RED BLOOD CELL COUNT 4.49 mill/uL (4.2-5.4); RED CELL DISTRIBUTION WIDTH 18.7 % (11.6-14.6)
[2022-12-31 08:13] LABS: CHLORIDE 106 mEq/L (98-107)
[2022-12-31] MEDS: INSULIN LISPRO 100 UNITS/ML SUBCUT SCH ×4 (08:45→21:24)
[2022-12-31] MEDS: FAMOTIDINE 20MG/2ML VIAL IV SCH (10:56)
[2022-12-31] MEDS: METOPROLOL TARTRATE 25MG TABLET PO SCH ×2 (10:59→21:20)
[2022-12-31] MEDS: ASPIRIN 81MG TABLET PO SCH (11:00)
[2022-12-31] MEDS: FERROUS SULFATE 325MG TABLET PO SCH (11:00)
[2022-12-31] MEDS: ASCORBIC ACID 250 MG TABLET PO SCH (11:00)
[2022-12-31] MEDS: ZINC SULFATE 220 MG ( 50 ) CAPSULE PO SCH (11:00)
[2022-12-31] MEDS: AMLODIPINE 10MG TABLET PO SCH (11:00)
[2022-12-31] MEDS: ENOXAPARIN 30MG/0.3ML SYR SUBCUT SCH ×2 (11:01→21:21)
[2022-12-31] MEDS: VANCOMYCIN 1.25GM PMX (XELLIA) 250 ML IV SCH (13:31)
[2022-12-31] MEDS ORDERED: VANCOMYCIN 1G PREMIX 200 ML IV SCH (14:00)
[2022-12-31] MEDS: ATORVASTATIN CALCIUM 20MG TABLET PO SCH (21:20)
[2022-12-31] MEDS: INSULIN GLARGINE 100 UNITS/ML SUBCUT SCH (21:24)
[2023-01-01] VITALS: BP 136/77
[2023-01-01 04:00] VITALS: BP 133/84
[2023-01-01 05:54] LABS: CHLORIDE 107 mEq/L (98-107)
[2023-01-01 06:17] LABS: BASOPHILS % 0.5 % (0.0-2.0); EOSINOPHILS % 4.7 % (0.0-5.0); HEMATOCRIT. 34.3 % (36.0-48.0); MEAN CORPUSCULAR HEMOGLOBIN 24.2 pg (28.0-32.0); MEAN PLATELET VOLUME 8.6 fl (7.4-10.4); MONOCYTES % 5.5 % (2.0-8.0); NEUTROPHILS % 71.3 % (40.0-76.0); PLATELET 381 x1000/uL (130-400); RED BLOOD CELL COUNT 4.57 mill/uL (4.2-5.4); RED CELL DISTRIBUTION WIDTH 18.6 % (11.6-14.6)
[2023-01-01] MEDS: MEROPENEM 1,000 MG in SODIUM CHLORIDE 0.9% 100 ML IV SCH ×2 (06:28→13:54)
[2023-01-01] MEDS: BLOOD SUGAR DIAGNOSTIC STRIP TEST SCH ×4 (06:28→21:30)
[2023-01-01] MEDS: INSULIN LISPRO 100 UNITS/ML SUBCUT SCH ×4 (07:20→22:23)
[2023-01-01 08:00] VITALS: BP 142/85
[2023-01-01] MEDS: ASPIRIN 81MG TABLET PO SCH (09:40)
[2023-01-01] MEDS: FERROUS SULFATE 325MG TABLET PO SCH (09:40)
[2023-01-01] MEDS: FAMOTIDINE 20MG/2ML VIAL IV SCH (09:40)
[2023-01-01] MEDS: ZINC SULFATE 220 MG ( 50 ) CAPSULE PO SCH (09:40)
[2023-01-01] MEDS: ENOXAPARIN 30MG/0.3ML SYR SUBCUT SCH ×2 (09:40→22:14)
[2023-01-01] MEDS: ASCORBIC ACID 250 MG TABLET PO SCH (09:40)
[2023-01-01] MEDS: AMLODIPINE 10MG TABLET PO SCH (09:41)
[2023-01-01] MEDS: METOPROLOL TARTRATE 25MG TABLET PO SCH ×2 (09:43→22:15)
[2023-01-01 12:00] VITALS: BP 145/80
[2023-01-01] MEDS: VANCOMYCIN 1.25GM PMX (XELLIA) 250 ML IV SCH (13:54)
[2023-01-01 16:00] VITALS: BP 151/89
[2023-01-01 19:22] LABS: TOTAL IRON BINDING CAPACITY 257 ug/dL (250-450)
[2023-01-01 19:46] LABS: FOLIC ACID (FOLATE) SERUM 12.4 ng/mL (>5.38)
[2023-01-01 20:00] VITALS: BP 146/70
[2023-01-01] MEDS: PIPERACILLIN/TAZOBACTAM 3.375 G in DEXTROSE 5% WATER 50 ML IV SCH ×2 (22:00→22:15)
[2023-01-01] MEDS: ATORVASTATIN CALCIUM 20MG TABLET PO SCH (22:13)
[2023-01-01] MEDS: INSULIN GLARGINE 100 UNITS/ML SUBCUT SCH (22:24)
[2023-01-02] VITALS: BP 143/80
[2023-01-02 04:01] VITALS: BP 133/59
[2023-01-02] MEDS: PIPERACILLIN/TAZOBACTAM 3.375 G in DEXTROSE 5% WATER 50 ML IV SCH (06:00)
[2023-01-02] MEDS: INSULIN LISPRO 100 UNITS/ML SUBCUT SCH ×4 (07:20→21:35)
[2023-01-02] MEDS: BLOOD SUGAR DIAGNOSTIC STRIP TEST SCH ×4 (07:39→21:34)
[2023-01-02 08:00] VITALS: BP 141/93
[2023-01-02] MEDS: FAMOTIDINE 20MG/2ML VIAL IV SCH (09:00)
[2023-01-02] MEDS: ENOXAPARIN 30MG/0.3ML SYR SUBCUT SCH ×2 (09:05→21:24)
[2023-01-02] MEDS: METOPROLOL TARTRATE 25MG TABLET PO SCH ×2 (09:06→21:26)
[2023-01-02] MEDS: FERROUS SULFATE 325MG TABLET PO SCH (09:06)
[2023-01-02] MEDS: ASCORBIC ACID 250 MG TABLET PO SCH (09:06)
[2023-01-02] MEDS: AMLODIPINE 10MG TABLET PO SCH (09:06)
[2023-01-02] MEDS: ZINC SULFATE 220 MG ( 50 ) CAPSULE PO SCH (09:06)
[2023-01-02] MEDS: ASPIRIN 81MG TABLET PO SCH (09:07)
[2023-01-02 10:51] LABS: BASOPHILS % 0.5 % (0.0-2.0); EOSINOPHILS % 3.8 % (0.0-5.0); HEMATOCRIT. 34.8 % (36.0-48.0); LYMPHOCYTES % 17.7 % (20.0-50.0); MEAN CORPUSCULAR HEMOGLOBIN 23.5 pg (28.0-32.0); MEAN CORPUSCULAR VOLUME 74.4 fL (81.0-99.0); MEAN PLATELET VOLUME 8.7 fl (7.4-10.4); MONOCYTES % 7.2 % (2.0-8.0); NEUTROPHILS % 70.8 % (40.0-76.0); PLATELET 425 x1000/uL (130-400); RED BLOOD CELL COUNT 4.67 mill/uL (4.2-5.4); RED CELL DISTRIBUTION WIDTH 18.9 % (11.6-14.6)
[2023-01-02 11:04] LABS: CHLORIDE 106 mEq/L (98-107)
[2023-01-02] MEDS: NITROFURANTOIN 100MG M/M CAPSULE PO SCH ×2 (11:48→21:25)
[2023-01-02 12:00] VITALS: BP 140/81
[2023-01-02] MEDS ORDERED: VANCOMYCIN 1G PREMIX 200 ML IV SCH (13:00)
[2023-01-02] MEDS: FAMOTIDINE 20MG TABLET PO SCH ×2 (14:33→21:25)
[2023-01-02 16:00] VITALS: BP 123/59
[2023-01-02 20:00] VITALS: BP 159/93
[2023-01-02] MEDS: ATORVASTATIN CALCIUM 20MG TABLET PO SCH (21:25)
[2023-01-02] MEDS: INSULIN GLARGINE 100 UNITS/ML SUBCUT SCH (21:34)
[2023-01-03] VITALS: BP 139/77
[2023-01-03 04:00] VITALS: BP 137/69
[2023-01-03] MEDS: BLOOD SUGAR DIAGNOSTIC STRIP TEST SCH ×2 (06:27→11:50)
[2023-01-03] MEDS: INSULIN LISPRO 100 UNITS/ML SUBCUT SCH ×2 (06:27→12:20)
[2023-01-03 07:50] LABS: BASOPHILS % 0.3 % (0.0-2.0); EOSINOPHILS % 5.1 % (0.0-5.0); HEMOGLOBIN. 11.1 g/dL (12.0-16.0); LYMPHOCYTES % 25.6 % (20.0-50.0); MEAN CORPUSCULAR HEMOGLOBIN 23.7 pg (28.0-32.0); MEAN CORPUSCULAR VOLUME 74.3 fL (81.0-99.0); MEAN PLATELET VOLUME 8.8 fl (7.4-10.4); MONOCYTES % 7.6 % (2.0-8.0); NEUTROPHILS % 61.4 % (40.0-76.0); PLATELET 417 x1000/uL (130-400); RED BLOOD CELL COUNT 4.71 mill/uL (4.2-5.4); RED CELL DISTRIBUTION WIDTH 18.3 % (11.6-14.6)
[2023-01-03 07:53] LABS: CHLORIDE 106 mEq/L (98-107)
[2023-01-03 08:00] VITALS: BP 156/96
[2023-01-03] MEDS: ASCORBIC ACID 250 MG TABLET PO SCH (09:29)
[2023-01-03] MEDS: ENOXAPARIN 30MG/0.3ML SYR SUBCUT SCH (09:29)
[2023-01-03] MEDS: NITROFURANTOIN 100MG M/M CAPSULE PO SCH (09:30)
[2023-01-03] MEDS: AMLODIPINE 10MG TABLET PO SCH (09:30)
[2023-01-03] MEDS: FAMOTIDINE 20MG TABLET PO SCH (09:30)
[2023-01-03] MEDS: FERROUS SULFATE 325MG TABLET PO SCH (09:30)
[2023-01-03] MEDS: ASPIRIN 81MG TABLET PO SCH (09:30)
[2023-01-03] MEDS: ZINC SULFATE 220 MG ( 50 ) CAPSULE PO SCH (09:30)
[2023-01-03] MEDS: METOPROLOL TARTRATE 25MG TABLET PO SCH (09:31)
[2023-01-03] MEDS ORDERED: ACETAMINOPHEN 325MG TABLET PO PRN (11:00)
[2023-01-03 11:27] VITALS: BP 159/56
[2023-01-03 12:00] VITALS: BP 146/98
[2023-01-03] MEDS ORDERED: POTASSIUM CHLORIDE 20MEQ TABLET SR PO NR (12:45)
== END 2023-01-03 12:00 | DRG 871 ==
LOC: ER 11:25 → MICUSO 13:17 → EDBEDREQSVC 22:46 → ENRESERV 23:21 → 3WST 12-30 01:02
PROVIDERS: ADMIT Internal Medicine; ATTEND Internal Medicine
DX: A41.9 Sepsis, unspecified organism (principal); G92.8 Other toxic encephalopathy; L98.429 Non-pressure chronic ulcer of back with unspecified severity; I10 Essential (primary) hypertension; D32.9 Benign neoplasm of meninges, unspecified; E11.9 Type 2 diabetes mellitus without complications; E78.00 Pure hypercholesterolemia, unspecified; L89.151 Pressure ulcer of sacral region, stage 1; D50.9 Iron deficiency anemia, unspecified; Z79.4 Long term (current) use of insulin; Z79.82 Long term (current) use of aspirin; Z79.899 Other long term (current) drug therapy; Z79.84 Long term (current) use of oral hypoglycemic drugs; Z82.49 Family history of ischemic heart disease and other diseases of the circulatory system
CPT/HCPCS: 36415; 70496; 70498; 70551; 71045; 80048; 80053; 80061; 80202; 80305; 80320; 81003; 82140; 82550; 82553; 82607; 82728; 82746; 82962; 83036; 83540; 83550; 84145; 84484; 85025; 85651; 92610; 93005; 93970; 97162; 97165; 97535; 99291; J1650; J1815; J2185; J2543; J3370; J3490; J7050; J7060; Q9967; G0480